=== PATIENT | male | born 1970 | race Hispanic/Latino ===

== ENCOUNTER 2017-06-20 18:04 | Inpatient (IN) | payer BC ==
[2017-06-20] MEDS ORDERED: Oxycodone/Acetaminophen 5/325 mg Tab PO STA (18:26)
[2017-06-20] MEDS ORDERED: Oxycodone/Acetaminophen 5/325 mg Tab ONE ×2 (19:10→19:14)
--- NOTE | 2017-06-20 19:24 | ED PDOC ---
HPI: General Adult Time Seen by Provider: 06/20/17 18:07 Chief Complaint (Nursing): Headache History Per: Patient Additional Complaint(s): Pt. states earlier this morning he was in the bathroom when he bent forward and attempted to lean on the sink with his arms but missed causing him to fall forward. States he struck the L side of his forehead and scalp onto the floor. Reports that he did not lose consciousness but has been having a headache since then. Further states that when he was 24 years old he required brain surgery to remove a glioblastoma. Denies LOC, N/V, neck pain, other injury. Past Medical History Reviewed: Historical Data, Nursing Documentation, Vital Signs Vital Signs: Last Vital Signs Temp 98 F 06/20/17 18:21 Pulse 84 06/20/17 19:51 Resp 20 06/20/17 18:21 BP 130/70 06/20/17 18:21 Pulse Ox 98 06/20/17 19:51 - Family History Family History: States: No Known Family Hx - Allergies Allergies/Adverse Reactions: Allergies Allergy/AdvReac Type Severity Reaction Status Date / Time No Known Allergies Allergy Verified 06/20/17 18:21 Review of Systems ROS Statement: Except As Marked, All Systems Reviewed And Found Negative Neurological: Positive for: Headache Physical Exam - Reviewed Nursing Documentation Reviewed: Yes Vital Signs Reviewed: Yes - Physical Exam Appears: Positive for: Well, Non-toxic, No Acute Distress Head Exam: Positive for: NORMOCEPHALIC. Negative for: ATRAUMATIC, NORMAL INSPECTION (old surgical wound on occipital scalp) Skin: Positive for: Normal Color, Warm. Negative for: Rash Eye Exam: Positive for: EOMI, Normal appearance, PERRL ENT: Positive for: Normal ENT Inspection Neck: Positive for: Normal, Painless ROM Cardiovascular/Chest: Positive for: Regular Rate, Rhythm, Chest Non Tender Respiratory: Positive for: CNT, Normal Breath Sounds Gastrointestinal/Abdominal: Positive for: Normal Exam, Bowel Sounds, Soft. Negative for: Tenderness Back: Positive for: Normal Inspection Extremity: Positive for: Normal ROM Neurologic/Psych: Positive for: Alert, Oriented. Negative for: Aphasia, Facial Droop - ECG ECG: Positive for: Interpreted By Me ECG Rhythm: Positive for: Sinus Rhythm. Negative for: ST/T Changes Rate: 84 O2 Sat by Pulse Oximetry: 98 - Progress ED Course And Treament: CT head w/o contrast ordered. Percocet 2 tabs PO [address]. [address] CT head w/o contrast: 1. There are old postoperative changes of right parieto- occipital craniotomy. 2. There is extensive encephalomalacia involving the right occipital and right parietal lobes, likely related to prior surgical resection. 3. No acute intracranial pathology. Pt. informed of results and instructed to f/u with PMD. Disposition - Clinical Impression Clinical Impression: Head injury - Patient ED Disposition Is Patient to be Admitted: No - Disposition Referrals: Glenda Foley [Outside] Disposition: Routine/Home Disposition Time: 19:51 Condition: STABLE Additional Instructions: Follow up with your neurologist for further evaluation. Instructions: Head Injury (ED) Forms: [facility] [employer] (Khmer) Print Language: HUNGARIAN
[2017-06-20] MEDS ORDERED: Sodium Chloride 0.9% 1,000 ML IV STA ×2 (21:15→21:21)
[2017-06-20 21:52] LABS: BASO % 0.4 % (0.0-2.0); EOS % 0.1 % (0.0-4.0); HEMATOCRIT 40.2 % (35.0-51.0); LYMPH % 13.1 % (20.0-40.0); MEAN CELL VOLUME 91.3 fl (80.0-94.0); MEAN CORPUSCULAR HEMOGLOBIN 31.3 pg (27.0-31.0); MEAN CORPUSCULAR HGB CONC 34.2 g/dL (33.0-37.0); MEAN PLATELET VOLUME 8.6 fl (7.2-11.7); MONO # 0.6 K/uL (0.0-0.8); NEUT # 6.2 K/uL (1.8-7.0); NEUT % 78.4 % (50.0-75.0); NRBC % 0.1 % (0.0-0.0); RED CELL DISTRIBUTION WIDTH 12.7 % (11.5-14.5); WHITE BLOOD COUNT 7.9 K/uL (4.8-10.8)
[2017-06-20 22:03] LABS: ALB/GLOB RATIO 1.6 (1.0-2.1); ALKALINE PHOSPHATASE 91 U/L (38-126); ALT/SGPT 32 U/L (21-72); AST/SGOT 26 U/L (17-59); BILIRUBIN,TOTAL 0.7 mg/dl (0.2-1.3); BLOOD UREA NITROGEN 12 mg/dl (9-20); CALCIUM 9.5 mg/dL (8.4-10.2); CARBON DIOXIDE 24 mmol/L (22-30); CHLORIDE 100 mmol/L (98-107); GFR AFRICAN-AMERICAN > 60; GLUCOSE,RANDOM 107 mg/dL (75-110); POTASSIUM 3.7 MMOL/L (3.6-5.0); SODIUM 139 mmol/l (132-148); TOTAL PROTEIN 6.7 G/DL (6.3-8.2)
--- NOTE | 2017-06-20 22:20 | ED PDOC ---
- Laboratory Results Result Diagrams: 06/20/17 21:48 06/20/17 21:48 - ECG O2 Sat by Pulse Oximetry: 98 <Meme Samson - Last Filed: 06/20/17 22:18> - Laboratory Results Result Diagrams: 06/20/17 21:48 06/20/17 21:48 <Jules Simons - Last Filed: 06/21/17 01:00> - Progress ED Course And Treament: Case endorsed to internal communications writer from Janna PEREZ pending re-eval Patient unable to get out of bed due to feeling severely "off-balanced". Sister at bedside, states patient has been with frequent falls due to feeling off-balanced but never to the extent of sending patient to hospital. Patient states he hit his head "pretty harD" this time. Patient vomited x1 in ED. Patient evaluated by ED attending Dr. Simons, who discussed case with patient's Neuro-oncologist Dr. Whitaker ([phone]), who does not have recommendations at this time. Patient will be admitted for intractable dizziness status-post head injury (Meme Samson) Disposition <Meme Samson - Last Filed: 06/20/17 22:18> - POA Present On Arrival: None - Disposition Disposition: Hospitalized as Observation Patient Disposition Time: 23:00 <Jules Simons - Last Filed: 06/21/17 01:00> - Clinical Impression Clinical Impression: Head injury - Disposition Condition: STABLE
[2017-06-21] MEDS ORDERED: Oxycodone/Acetaminophen 5/325 mg Tab PO PRN (06:43)
--- NOTE | 2017-06-21 08:39 | CT ---
PROCEDURE: CT HEAD WITHOUT CONTRAST. HISTORY: trauma COMPARISON: None available. TECHNIQUE: Axial computed tomography images were obtained through the head/brain without intravenous contrast. Radiation dose: Total exam DLP = 882.88 mGy-cm. This CT exam was performed using one or more of the following dose reduction techniques: Automated exposure control, adjustment of the mA and/or kV according to patient size, and/or use of iterative reconstruction technique. FINDINGS: HEMORRHAGE: Small area of intermediate to high attenuation in the high paramedian right frontal lobe (series 4, image 51 close) is noted. This may represent calcification or focal hemorrhage. BRAIN: There is extensive dentate calcification in both cerebellar hemispheres. There is extensive gyral calcification in the left posterior occipital parietal region. There are scattered cortical calcifications. There are pontine calcifications. These calcifications are most likely the result of prior infection, possibly childhood infection. The patient is status post resection of a portion of the right parietal lobe reportedly for neoplasm. There is no intracranial mass identified. There is extensive encephalomalacia in the surgical bed. There is no evidence of acute infarct. There is ischemic white matter change in the high frontal white matter bilaterally (series 4, image 43 through 49). VENTRICLES: Unremarkable. No hydrocephalus. CALVARIUM: Status post right occipito parietal craniotomy. No acute fracture. PARANASAL SINUSES: Unremarkable as visualized. No significant inflammatory changes. MASTOID AIR CELLS: Unremarkable as visualized. No inflammatory changes. OTHER FINDINGS: None. IMPRESSION: Focal area of intermediate to high attenuation in the paramedian high right frontal lobe. Possibly cortical calcification. Cannot rule out small area of focal hemorrhage. Repeat CT examination within 24 hours is advised. Extensive parenchymal calcification involving the cerebellar hemispheres, the linda, left occipital gyri and scattered cortical calcifications. Likely post infectious/inflammatory. Postsurgical encephalomalacia right occipital parietal likely related to prior surgery for reported neoplasm. Preliminary interpretation of this examination was reported by [facility] at time. There is discordance of this report with the preliminary interpretation. Question of hemorrhage versus calcification in the high right frontal lobe was not discussed in the preliminary report of this examination. The critical finding of possible focal hemorrhage this patient was discussed by telephone with the patient's nurse, Pamela, at 8:30 a.m. on 06/21/2017. The need for re- evaluation with computed tomography today was discussed at this time.
[2017-06-21] MEDS ORDERED: Pneumococcal 23-Valent Vaccine IM ONE (09:00)
[2017-06-21] MEDS ORDERED: Influenza Vaccine 18yr & older 0.5 ML/45 MCG SYR IM ONE (09:00)
[2017-06-21 09:39] LABS: ALB/GLOB RATIO 1.5 (1.0-2.1); ALKALINE PHOSPHATASE 83 U/L (38-126); ALT/SGPT 32 U/L (21-72); AST/SGOT 25 U/L (17-59); BILIRUBIN,TOTAL 0.9 mg/dl (0.2-1.3); BLOOD UREA NITROGEN 11 mg/dl (9-20); CALCIUM 9.3 mg/dL (8.4-10.2); CARBON DIOXIDE 24 mmol/L (22-30); CHLORIDE 98 mmol/L (98-107); CHOLESTEROL 184 mg/dL (0-199); GFR AFRICAN-AMERICAN > 60; GLUCOSE,RANDOM 106 mg/dL (75-110); SODIUM 136 mmol/l (132-148); TOTAL PROTEIN 6.7 G/DL (6.3-8.2)
[2017-06-21 09:44] LABS: HEMATOCRIT 38.2 % (35.0-51.0); MEAN CELL VOLUME 90.7 fl (80.0-94.0); MEAN CORPUSCULAR HEMOGLOBIN 31.4 pg (27.0-31.0); MEAN CORPUSCULAR HGB CONC 34.6 g/dL (33.0-37.0); RED CELL DISTRIBUTION WIDTH 12.5 % (11.5-14.5); WHITE BLOOD COUNT 6.6 K/uL (4.8-10.8)
[2017-06-21 09:49] LABS: PARTIAL THROMBOPLASTIN TIME 27.7 Seconds (25.6-37.1)
[2017-06-21 09:57] LABS: T4 5.12 ug/dl (5.5-11.0)
[2017-06-21 10:10] LABS: THYROID STIMULATING HORMONE 0.44 mIU/ML (0.46-4.68)
--- NOTE | 2017-06-21 10:37 | CARD ---
APPROVED REPORT EKG Measurement Heart [id number] [place] 146P [id number] <Conclusion> Normal sinus rhythm Left posterior fascicular block Nonspecific ST and T wave abnormality Abnormal ECG Suspect arm lead reversal-recommend repeat
--- NOTE | 2017-06-21 11:59 | RAD ---
HISTORY: Admission. Technique: Single view portable semi erect @ 22:35. COMPARISON: No prior. FINDINGS: LUNGS: No active pulmonary disease. PLEURA: No significant pleural effusion identified, no pneumothorax apparent. CARDIOVASCULAR: Cardiomegaly. No evidence of acute, significant cardiovascular disease. OSSEOUS STRUCTURES: No significant abnormalities. VISUALIZED UPPER ABDOMEN: Normal. OTHER FINDINGS: None. IMPRESSION: No active disease. No preliminary report provided by emergency department personnel.
--- NOTE | 2017-06-21 13:25 | CP.PCM.HP ---
History of Present Illness - History of Present Illness History of Present Illness: CC: Fall and trauma. 46 y/o M, brought by EMS to [facility], [place] after he sustained a fall and head trauma while at home on DOA, episode was associated to unstable gait . Worsening symptoms: Headache, throbbing pain of moderate intensity 6:10, after fall an episode of vomiting large amount of clear fluid, Hx of Gioblastoma. Aggravated factor: Loss of balance on occasions. As per Pt; He was in the bathroom and when he tried to lean on the sink with his hands but suddenly he losses the balance and fell forward hitting his L side of head against the wall, no LOC. Pt denied: Fever, chills, nausea/diarrhea, abdominal pain, CP, palpitations, SOB , cough, seizure, lightheadedness, sick contact, recent travel. PMHx: R Occipital Brain Mass Glioblastoma s/p resection and radiation 20 yrs ago , there after developed Seizure Tx with Tegretol. Hx Falls 2nd to L side difficulty with coordinations, Hx of Hemianopsia for 22 yrs. P Present on Admission - Present on Admission Any Indicators Present on Admission: No Review of Systems - Constitutional Constitutional: Frequent Falls, Headache - EENT Ears: Other (negative) Nose/Mouth/Throat: Other (negative) - Cardiovascular Cardiovascular: Other (negative) - Respiratory Respiratory: Other (negative) - Gastrointestinal Gastrointestinal: Vomiting - Genitourinary Genitourinary: Other (negative) - Integumentary Integumentary: Other (negative) - Neurological Neurological: Abnormal Gait, Dizziness, Focal Weakness, Vertigo - Psychiatric Psychiatric: Depression - Endocrine Endocrine: Other (negative) - Hematologic/Lymphatic Hematologic: Other (negative) Past Patient History - Past Medical History & Family History Past Medical History?: Yes Pertinent Family History: Unknown - Past Social History Smoking Status: Never Smoked Alcohol: None Drugs: Denies Home Situation {Lives}: Alone - CARDIAC Hx Cardiac Disorders: No - PULMONARY Hx Respiratory Disorders: No - NEUROLOGICAL Hx Neurological Disorder: Yes Hx Seizures: Yes Other/Comment: malignant brain tumor that was resected 20 years ago - RENAL Hx Chronic Kidney Disease: No - ENDOCRINE/METABOLIC Hx Endocrine Disorders: No - HEMATOLOGICAL/ONCOLOGICAL Hx Blood Disorders: No - INTEGUMENTARY Hx Dermatological Problems: No - MUSCULOSKELETAL/RHEUMATOLOGICAL Hx Musculoskeletal Disorders: Yes Hx Falls: Yes - GASTROINTESTINAL Hx Gastrointestinal Disorders: No - GENITOURINARY/GYNECOLOGICAL Hx Genitourinary Disorders: No - PSYCHIATRIC Hx Psychophysiologic Disorder: Yes Hx Depression: Yes Hx Substance Use: No - SURGICAL HISTORY Hx Surgeries: Yes Other/Comment: Malignant Robbie Tumor resected 20 years ago. - ANESTHESIA Hx Anesthesia: Yes Hx Anesthesia Reactions: No Meds Home Medications: Home Medication List Medication Instructions Recorded Confirmed Type Aspirin [Ecotrin] 81 mg PO DAILY tabec 06/27/17 Rx Dexamethasone [Decadron Inj] 4 mg IV Q12 #10 vial 06/27/17 Rx Meclizine [Meclizine*] 25 mg PO Q8 tab 06/27/17 Rx carBAMazepine [TEGretol-XR] 300 [address]12 [address] 06/27/17 Rx Allergies/Adverse Reactions: Allergies Allergy/AdvReac Type Severity Reaction Status Date / Time No Known Allergies Allergy Verified 06/27/17 16:36 Physical Exam - Constitutional Appears: Chronically Ill - Head Exam Additional comments: R Craneotomy - Eye Exam Eye Exam: PERRL - ENT Exam ENT Exam: Normal Exam - Neck Exam Neck exam: Positive for: Normal Inspection - Respiratory Exam Respiratory Exam: Clear to Auscultation Bilateral - Cardiovascular Exam Cardiovascular Exam: REGULAR RHYTHM - GI/Abdominal Exam GI & Abdominal Exam: Normal Bowel Sounds, Soft - Extremities Exam Extremities exam: Positive for: normal inspection - Back Exam Back exam: NORMAL INSPECTION - Neurological Exam Neurological exam: Abnormal Gait, Oriented x3 Additional comments: L Hemianopsia , LUE , LLE Ataxia , L decreased hand supervisor facepiece line , moves lower extremities but is unable to stand - Psychiatric Exam Psychiatric exam: Depressed - Skin Skin Exam: Normal Color, Warm Results - Vital Signs Recent Vital Signs: Last Vital Signs Temp 99.6 F 06/21/17 08:40 Pulse 74 06/21/17 08:40 Resp 20 06/21/17 08:40 BP 134/85 06/21/17 08:40 Pulse Ox 97 06/21/17 08:40 reviewed Parris - Labs Result Diagrams: 06/24/17 05:40 06/24/17 05:40 Labs: Laboratory Results - last 24 hr 06/20/17 06/20/17 06/20/17 18:22 21:48 21:48 WBC 7.9 RBC 4.40 Hgb 13.8 Hct 40.2 MCV 91.3 MCH 31.3 H MCHC 34.2 RDW 12.7 Plt Count 165 MPV 8.6 Neut % (Auto) 78.4 H Lymph % (Auto) 13.1 L [place] % (Auto) 8.0 Eos % (Auto) 0.1 Baso % (Auto) 0.4 Neut # 6.2 Lymph # 1.0 [place] # 0.6 Eos # 0.0 Baso # 0.0 PT INR APTT Sodium 139 Potassium 3.7 Chloride 100 Carbon Dioxide 24 Anion Gap 19 BUN 12 Creatinine 0.8 Est GFR ( Amer) > 60 Est GFR (Non-Af Amer) > 60 POC Glucose (mg/dL) 104 Random Glucose 107 Calcium 9.5 Total Bilirubin 0.7 AST 26 ALT 32 Alkaline Phosphatase 91 Troponin I < 0.0120 Total Protein 6.7 Albumin 4.1 Globulin 2.6 Albumin/Globulin Ratio 1.6 Triglycerides Cholesterol LDL Cholesterol Direct HDL Cholesterol Thyroxine (T4) TSH 3rd Generation Carbamazepine 06/20/17 06/21/17 06/21/17 21:48 08:30 08:30 WBC 6.6 RBC 4.21 L Hgb 13.2 Hct 38.2 MCV 90.7 MCH 31.4 H MCHC 34.6 RDW 12.5 Plt Count 154 MPV Neut % (Auto) Lymph % (Auto) [place] % (Auto) Eos % (Auto) Baso % (Auto) Neut # Lymph # [place] # Eos # Baso # PT 12.1 INR 1.2 APTT 27.7 Sodium Potassium Chloride Carbon Dioxide Anion Gap BUN Creatinine Est GFR ( Amer) Est GFR (Non-Af Amer) POC Glucose (mg/dL) Random Glucose Calcium Total Bilirubin AST ALT Alkaline Phosphatase Troponin I Total Protein Albumin Globulin Albumin/Globulin Ratio Triglycerides Cholesterol LDL Cholesterol Direct HDL Cholesterol Thyroxine (T4) TSH 3rd Generation Carbamazepine < 3.0 L 06/21/17 08:30 WBC RBC Hgb Hct MCV MCH MCHC RDW Plt Count MPV Neut % (Auto) Lymph % (Auto) [place] % (Auto) Eos % (Auto) Baso % (Auto) Neut # Lymph # [place] # Eos # Baso # PT INR APTT Sodium 136 Potassium 4.0 Chloride 98 Carbon Dioxide 24 Anion Gap 18 BUN 11 Creatinine 0.8 Est GFR ( Amer) > 60 Est GFR (Non-Af Amer) > 60 POC Glucose (mg/dL) Random Glucose 106 Calcium 9.3 Total Bilirubin 0.9 AST 25 ALT 32 Alkaline Phosphatase 83 Troponin I Total Protein 6.7 Albumin 4.1 Globulin 2.7 Albumin/Globulin Ratio 1.5 Triglycerides 66 Cholesterol 184 LDL Cholesterol Direct 76 HDL Cholesterol 89 H Thyroxine (T4) 5.12 L TSH 3rd Generation 0.44 L Carbamazepine reviewed J.P. - EKG Data EKG comments: reviewed J.P. - Imaging and Cardiology CT scan - head Status: Report reviewed by me (x 2, J.P.) Chest x-ray Status: Report reviewed by me (J.P.) Assessment & Plan (1) Gait instability Status: Acute Priority: High (2) Head injury Status: Acute Priority: High Comment: 2nd to fall (3) Headache Status: Resolved Priority: High (4) Hx of seizure disorder Status: Chronic (5) Hx of fall Status: Chronic (6) History of brain tumor Status: Resolved - Assessment and Plan (Free Text) Plan: F/U Brain MRI, MRI Orbit/Face/Neck/IAC, continue Decadron, Tegretol , and rest of Tx. PT eval. Neurology consult appreciated. - Date & Time Date: 06/21/17 Time: 13:30
--- NOTE | 2017-06-21 14:31 | CP.PCM.CON ---
History of Present Illness - History of Present Illness History of Present Illness: Mr. Huizar is a 46-year-old man with a past medical history of a right occipital brain mass s/p resection and radiation, who developed seizures in the past, and is on Tegretol. He states that his neuro-oncologist recently decreased the Tegretol dose from BID to once daily. He has intermittent weakness and left side difficulty with coordination. For the last 22 years, he has had left side hemianopsia. According to the patient, he was getting ready for work, getting out of the shower, when he noticed his coordination and balance was off. His head continued to move forward as he was bending down and he subsequently hit his head on the floor. His head was struck near the left frontal-temporal region. He continues to complain of headache and balance difficulty with left side coordination difficulty. Review of Systems - Review of Systems All systems: reviewed and no additional remarkable complaints except Past Patient History - Past Medical History & Family History Past Medical History?: Yes - Past Social History Smoking Status: Never Smoked - CARDIAC Hx Cardiac Disorders: No - NEUROLOGICAL Other/Comment: malignant brain tumor that was resected 20 years ago - MUSCULOSKELETAL/RHEUMATOLOGICAL Hx Falls: Yes - PSYCHIATRIC Hx Substance Use: No - ANESTHESIA Hx Anesthesia: Yes Meds Allergies/Adverse Reactions: Allergies Allergy/AdvReac Type Severity Reaction Status Date / Time No Known Allergies Allergy Verified 06/20/17 18:21 - Medications Medications: Current Medications Carbamazepine (Tegretol-Xr) 200 mg PO Q12 [facility] Escitalopram Oxalate (Lexapro) 10 mg PO DAILY [facility] Last Admin: 06/21/17 09:42 Dose: 10 mg Meclizine HCl (Antivert) 25 mg PO Q8 [facility] Last Admin: 06/21/17 09:44 Dose: 25 mg Oxycodone/Acetaminophen (Percocet 5/325 Mg Tab) 2 tab PO Q4 PRN PRN Reason: Pain, severe (8-10) Stop: 06/24/17 06:44 Physical Exam - Constitutional Appears: Unkempt - Head Exam Head Exam: ATRAUMATIC, NORMAL INSPECTION, NORMOCEPHALIC - Eye Exam Eye Exam: EOMI, Normal appearance, PERRL - ENT Exam ENT Exam: Mucous Membranes Moist, Normal Exam - Neck Exam Neck exam: Positive for: Normal Inspection - Respiratory Exam Respiratory Exam: Clear to Auscultation Bilateral, NORMAL BREATHING PATTERN - Cardiovascular Exam Cardiovascular Exam: REGULAR RHYTHM, +S1, +S2 - GI/Abdominal Exam GI & Abdominal Exam: Normal Bowel Sounds, Soft. absent: Tenderness - Rectal Exam Rectal Exam: Deferred - Extremities Exam Extremities exam: Positive for: normal inspection - Neurological Exam Neurological exam: Abnormal Gait, CN II-XII Intact, Oriented x3, Reflexes Normal Additional comments: Left upper and lower extremity ataxia present. Left side hemianopsia noted. Neglect of the left side noted. Right side is normal. Speech is normal. No dysarthria noted. Strength is diminished on the left with pronator drift. Reflexes are brisk on the left. Gait was not assessed due to patient being unable to site up without assistance. Romberg was not tested. - Psychiatric Exam Psychiatric exam: Agitated, Anxious, Depressed - Skin Skin Exam: Dry, Intact, Normal Color, Warm Results - Vital Signs Recent Vital Signs: Last Vital Signs Temp 99.6 F 06/21/17 08:40 Pulse 74 06/21/17 08:40 Resp 20 06/21/17 08:40 BP 134/85 06/21/17 08:40 Pulse Ox 97 06/21/17 08:40 - Labs Result Diagrams: 06/21/17 08:30 06/21/17 08:30 Labs: Laboratory Results - last 24 hr 06/20/17 06/20/17 06/20/17 18:22 21:48 21:48 WBC 7.9 RBC 4.40 Hgb 13.8 Hct 40.2 MCV 91.3 MCH 31.3 H MCHC 34.2 RDW 12.7 Plt Count 165 MPV 8.6 Neut % (Auto) 78.4 H Lymph % (Auto) 13.1 L [place] % (Auto) 8.0 Eos % (Auto) 0.1 Baso % (Auto) 0.4 Neut # 6.2 Lymph # 1.0 [place] # 0.6 Eos # 0.0 Baso # 0.0 PT INR APTT Sodium 139 Potassium 3.7 Chloride 100 Carbon Dioxide 24 Anion Gap 19 BUN 12 Creatinine 0.8 Est GFR ( Amer) > 60 Est GFR (Non-Af Amer) > 60 POC Glucose (mg/dL) 104 Random Glucose 107 Calcium 9.5 Total Bilirubin 0.7 AST 26 ALT 32 Alkaline Phosphatase 91 Troponin I < 0.0120 Total Protein 6.7 Albumin 4.1 Globulin 2.6 Albumin/Globulin Ratio 1.6 Triglycerides Cholesterol LDL Cholesterol Direct HDL Cholesterol Thyroxine (T4) TSH 3rd Generation Carbamazepine 06/20/17 06/21/17 06/21/17 21:48 08:30 08:30 WBC 6.6 RBC 4.21 L Hgb 13.2 Hct 38.2 MCV 90.7 MCH 31.4 H MCHC 34.6 RDW 12.5 Plt Count 154 MPV Neut % (Auto) Lymph % (Auto) [place] % (Auto) Eos % (Auto) Baso % (Auto) Neut # Lymph # [place] # Eos # Baso # PT 12.1 INR 1.2 APTT 27.7 Sodium Potassium Chloride Carbon Dioxide Anion Gap BUN Creatinine Est GFR ( Amer) Est GFR (Non-Af Amer) POC Glucose (mg/dL) Random Glucose Calcium Total Bilirubin AST ALT Alkaline Phosphatase Troponin I Total Protein Albumin Globulin Albumin/Globulin Ratio Triglycerides Cholesterol LDL Cholesterol Direct HDL Cholesterol Thyroxine (T4) TSH 3rd Generation Carbamazepine < 3.0 L 06/21/17 08:30 WBC RBC Hgb Hct MCV MCH MCHC RDW Plt Count MPV Neut % (Auto) Lymph % (Auto) [place] % (Auto) Eos % (Auto) Baso % (Auto) Neut # Lymph # [place] # Eos # Baso # PT INR APTT Sodium 136 Potassium 4.0 Chloride 98 Carbon Dioxide 24 Anion Gap 18 BUN 11 Creatinine 0.8 Est GFR ( Amer) > 60 Est GFR (Non-Af Amer) > 60 POC Glucose (mg/dL) Random Glucose 106 Calcium 9.3 Total Bilirubin 0.9 AST 25 ALT 32 Alkaline Phosphatase 83 Troponin I Total Protein 6.7 Albumin 4.1 Globulin 2.7 Albumin/Globulin Ratio 1.5 Triglycerides 66 Cholesterol 184 LDL Cholesterol Direct 76 HDL Cholesterol 89 H Thyroxine (T4) 5.12 L TSH 3rd Generation 0.44 L Carbamazepine - Imaging and Cardiology CT scan - head Status: Image reviewed by me, Report reviewed by me (CT shows previous craniotomy with resection of right occipital mass. Calcific changes in cerebellum and left occipital lobe noted. ) Assessment & Plan (1) Gait instability Assessment and Plan: The patient was able to ambulate with a cane up to two days ago. Now, he is unable to sit up without assistance. This signifies an acute change and should be evaluated for underlying pathology. I recommend obtaining an MRI of the brain with and without contrast for further evaluation. I would like to increase the Tegretol dose to 200 mg BID to avoid potential seizure activity. Status: Acute Priority: High (2) Headache Assessment and Plan: Will treat the headache with magnesium sulfate 2 grams IV and decadron 10 mg IV once. Avoid opiate medications. Status: Acute
--- NOTE | 2017-06-21 14:32 | CT ---
PROCEDURE: CT HEAD WITHOUT CONTRAST. HISTORY: R/o intracranial bleed COMPARISON: 06/20/2017 TECHNIQUE: Axial computed tomography images were obtained through the head/brain without intravenous contrast. Radiation dose: Total exam DLP = 874.39 mGy-cm. This CT exam was performed using one or more of the following dose reduction techniques: Automated exposure control, adjustment of the mA and/or kV according to patient size, and/or use of iterative reconstruction technique. FINDINGS: HEMORRHAGE: The area of focal high attenuation in the high parasagittal right frontal lobe is again identified without any interval change in morphology. This is unlikely to represent hemorrhage and most likely represents focal calcification. BRAIN: Extensive calcification in both cerebellar hemispheres. Gyral calcification in the left posterior occipital parietal region. Scattered cortical calcifications. Pontine calcifications. Most likely these calcifications are the result of old infection. Status post partial surgical resection of right parietal lobe for neoplasm. No intracranial mass. No evidence of acute infarct. High bilateral frontal white matter ischemic change. VENTRICLES: Unremarkable. No hydrocephalus. CALVARIUM: Right occipitoparietal craniotomy. PARANASAL SINUSES: Unremarkable as visualized. No significant inflammatory changes. MASTOID AIR CELLS: Unremarkable as visualized. No inflammatory changes. OTHER FINDINGS: None. IMPRESSION: No evidence of acute intracranial hemorrhage.
[2017-06-21] MEDS ORDERED: Dexamethasone 10 MG in Dextrose 5% In Water 50 ML IV ONE (15:00)
[2017-06-21] MEDS ORDERED: Magnesium Sulfate 2 gm/50 ml 2 GM/50 ML BAG IVPB ONE (15:00)
[2017-06-21 22:27] LABS: RBC URINE 3 /hpf (0-3); URINE BACTERIA RARE (<OCC); URINE BILIRUBIN NEGATIVE (NEGATIVE); URINE BLOOD NEGATIVE (NEGATIVE); URINE COLOR AMBER (YELLOW); URINE GLUCOSE (UA) NEG (Normal); URINE KETONE NEGATIVE (NEGATIVE); URINE LEUKOCYTE ESTERASE NEG Leu/uL (Negative); URINE PROTEIN 30 mg/dL (NEGATIVE); WBC URINE 1 /hpf (0-5)
--- NOTE | 2017-06-22 11:20 | CP.PCM.PN ---
Subjective - Date & Time of Evaluation Date of Evaluation: 06/22/17 Time of Evaluation: 11:16 - Subjective Subjective: Mr. Avila was seen and examined at the bedside. He is agitated, restless, and claims of left arm weakness. He also claims of pressure like headache in his temporal area with scale 4/10. no radiating. He denies any seizures or lightheadedness. He had anxiety attack during an MRI procedure yesterday.There was no untoward events overnight. Objective - Vital Signs/Intake and Output Vital Signs (last 24 hours): Temp Pulse Resp BP Pulse Ox 97.9 F 57 L 20 120/83 98 06/22/17 07:42 06/22/17 07:42 06/22/17 07:42 06/22/17 07:42 06/22/17 07:42 - Medications Medications: Current Medications Carbamazepine (Tegretol-Xr) 200 mg PO Q12 [facility] Last Admin: 06/22/17 09:07 Dose: 200 mg Escitalopram Oxalate (Lexapro) 10 mg PO DAILY [facility] Last Admin: 06/22/17 09:06 Dose: 10 mg Meclizine HCl (Antivert) 25 mg PO Q8 [facility] Last Admin: 06/22/17 09:06 Dose: 25 mg Oxycodone/Acetaminophen (Percocet 5/325 Mg Tab) 2 tab PO Q4 PRN PRN Reason: Pain, severe (8-10) Stop: 06/24/17 06:44 Last Admin: 06/21/17 17:27 Dose: 2 tab - Labs Labs: 06/21/17 08:30 06/21/17 08:30 PT 12.1 Seconds (9.8-13.1) 06/21/17 08:30 INR 1.2 (0.9-1.2) 06/21/17 08:30 APTT 27.7 Seconds (25.6-37.1) 06/21/17 08:30 - Constitutional Appears: Agitated - Neurological Exam Neurological Exam: Alert, Awake Neuro motor strength exam: Left Upper Extremity: 2/1, Right Upper Extremity: 5, Left Lower Extremity: 3, Right Lower Extremity: 5 Additional comments: He is able to follow simple commands but remains with left arm drift and left extremity weakness. Assessment and Plan (1) Gait instability Assessment & Plan: Case discussed with Dr. Jerez, will follow up MRI of the brain. If the patient has episode of panic attack, we recommend Ativan as needed. Unit [employer] made aware. Status: Acute (2) Headache Assessment & Plan: Case discussed with Dr. Jerez, continue current medical therapy will recommend Magnesium Sulfate 2 gm IVPB for 1 dose. Status: Acute
[2017-06-22] MEDS ORDERED: Magnesium Sulfate 2 gm/50 ml 2 GM/50 ML BAG IVPB ONE (11:24)
[2017-06-22] MEDS ORDERED: Gadodiamide 287 MG/ML VIAL (15ML) IV ONE (15:59)
--- NOTE | 2017-06-22 16:17 | CP.PCM.PN ---
Subjective - Subjective Subjective: complains od increase lack of cordination LUE , Patient with LLE weakness unable to transfer from bed to chair , headache , anxiety Objective - Vital Signs/Intake and Output Vital Signs (last 24 hours): Temp Pulse Resp BP Pulse Ox 97.9 F 57 L 20 120/83 98 06/22/17 07:42 06/22/17 07:42 06/22/17 07:42 06/22/17 07:42 06/22/17 07:42 - Medications Medications: Current Medications Carbamazepine (Tegretol-Xr) 200 mg PO Q12 [facility] Last Admin: 06/22/17 09:07 Dose: 200 mg Escitalopram Oxalate (Lexapro) 10 mg PO DAILY [facility] Last Admin: 06/22/17 09:06 Dose: 10 mg Meclizine HCl (Antivert) 25 mg PO Q8 [facility] Last Admin: 06/22/17 09:06 Dose: 25 mg Oxycodone/Acetaminophen (Percocet 5/325 Mg Tab) 2 tab PO Q4 PRN PRN Reason: Pain, severe (8-10) Stop: 06/24/17 06:44 Last Admin: 06/21/17 17:27 Dose: 2 tab - Labs Labs: 06/21/17 08:30 06/21/17 08:30 PT 12.1 Seconds (9.8-13.1) 06/21/17 08:30 INR 1.2 (0.9-1.2) 06/21/17 08:30 APTT 27.7 Seconds (25.6-37.1) 06/21/17 08:30 - Constitutional Appears: Chronically Ill - Head Exam Additional comments: R Craneotomy - Eye Exam Eye Exam: PERRL - ENT Exam ENT Exam: Normal Exam - Neck Exam Neck Exam: Normal Inspection - Respiratory Exam Respiratory Exam: Clear to Ausculation Bilateral - Cardiovascular Exam Cardiovascular Exam: REGULAR RHYTHM - GI/Abdominal Exam GI & Abdominal Exam: Soft, Normal Bowel Sounds - Extremities Exam Extremities Exam: Normal Inspection - Back Exam Back Exam: NORMAL INSPECTION - Neurological Exam Neurological Exam: Alert Additional comments: A O x3 , increased lack of cordination LUE, weakness LUE , unable to do L finger nose , able to move L/E , weakness LLE - Psychiatric Exam Psychiatric exam: Anxious - Skin Skin Exam: Warm Assessment and Plan (1) Gait instability Status: Acute (2) Head injury Status: Acute (3) Headache Status: Acute (4) History of brain tumor Status: Acute (5) Hx of fall Status: Chronic (6) Hx of seizure disorder Status: Chronic - Assessment and Plan (Free Text) Plan: Patient had repeated CT Head yesterday , no hemorrhage , MRI of Brain no new findings, to have Neck Head CTA today , continue rest of treatment.
--- NOTE | 2017-06-22 17:07 | MRI ---
PROCEDURE: MRI BRAIN WITH AND WITHOUT CONTRAST HISTORY: dizziness, frequent falls, h/o glioblastoma COMPARISON: Noncontrast head CT from 06/20/2017 TECHNIQUE: Multiplanar, multisequence MR images of the brain were obtained with and without intravenous contrast enhancement. 20 cc Omniscan was injected intravenously. FINDINGS: HEMORRHAGE: None DWI: No evidence of an acute or early subacute infarction. BRAIN PARENCHYMA: There is cystic encephalomalacia and gliosis with septation in the right posterior parietal and occipital lobes septation tube parieto-occipital craniectomy and duraplasty related to prior tumor resection. There is mild gyral enhancement in the right anterior occipital and parietal lobes most compatible with post treatment reactive enhancement. Confluent hyperintensity in the left periatrial white matter could also be related to posttreatment changes or gliosis. There is no mass effect or abnormal extra-axial fluid collection. The midline sagittal structures are normal. There is gyriform increased magnetic susceptibility in the left parieto-occipital lobe corresponding to the calcifications on CT examination which may be related to radiation therapy in this patient with glioblastoma. VENTRICLES: There is mild global parenchymal volume loss and proportionate enlargement of the ventricles and cortical sulci. CRANIUM: There is normal bone marrow signal pattern. ORBITS: Grossly unremarkable. PARANASAL SINUSES/MASTOIDS: Predominantly clear. VASCULAR SYSTEM: There are normal signal voids in the larger intracranial arteries. OTHER FINDINGS: None . IMPRESSION: 1. No acute intracranial abnormality. 2. Status post right tumor resection, cystic encephalomalacia and gliosis in the right posterior parietal and occipital lobes with associated mild surrounding gyral enhancement within the spectrum of posttreatment changes. 3. Mild global parenchymal volume loss, advanced for the patient's age.
--- NOTE | 2017-06-22 17:12 | MRI ---
PROCEDURE: MRI OF THE BRAIN AND INTERNAL AUDITORY CANALS WITH AND WITHOUT CONTRAST. HISTORY: dizziness, frequent falls; h/o glioblastoma COMPARISON: None. TECHNIQUE: Multiplanar, multisequence MR images of the brain and posterior fossa were obtained with and without contrast. High-resolution posterior fossa and images through the cerebellopontine angle and internal auditory canals included: Axial 3-D fiesta, axial T1 pre-and postcontrast enhanced and coronal T1 pre-and postcontrast enhanced. 20 cc Omniscan was injected intravenously. FINDINGS: IAC/CP ANGLES: INTERNAL AUDITORY CANALS: Unremarkable. CEREBELLOPONTINE ANGLES: Unremarkable. INNER EAR STRUCTURES: Unremarkable. Normally formed cochlea and semicircular canals. No signal abnormality or abnormal enhancement in the membranous labyrinth of the cochlea, vestibule or the semicircular canals. BRAINSTEM: Unremarkable. MASTOIDS: Predominantly clear. OTHER: No other notable findings. PARANASAL SINUSES: Clear IMPRESSION: No mass or abnormal enhancement in the IAC's or CP angle cisterns.
[2017-06-23] MEDS ORDERED: Sodium Chloride 0.9% 50 ML IV ONE (09:32)
[2017-06-23] MEDS ORDERED: Iodixanol 320 mg/ml 50 ml Sol IV ONE (09:32)
--- NOTE | 2017-06-23 10:51 | CT ---
PROCEDURE: CT Angiography of the Brain. HISTORY: tia COMPARISON: None available. TECHNIQUE: CT angiography of the intracranial and cervical arteries was performed. Coronal and sagittal maximum intensity projection reformated images were generated. Total radiation dose DLP: 728.[address] exam was performed using one or more of the following dose reduction techniques: Automated exposure control, adjustment of the mA and/or kV according to patient size, and/or use of iterative reconstruction technique. FINDINGS: INTERNAL CEREBRAL ARTERIES: Unremarkable. The skull base, petrous, cavernous and supraclinoid segments are bilaterally widely patient. ANTERIOR CEREBRAL ARTERIES: Unremarkable. A1 and A2 segments are widely patent. Smaller distal branches unremarkable, as visualized. MIDDLE CEREBRAL ARTERIES: Unremarkable. M1 and M2 segments are widely patent. Perisylvian branches grossly symmetric. POSTERIOR CIRCULATION: Basilar Artery: Unremarkable. Distal Vertebral Arteries: Unremarkable. Posterior Cerebral Arteries: Unremarkable. Posterior Inferior Cerebellar Arteries: Unremarkable. ANEURYSM/ VASCULAR MALFORMATIONS: None. OTHER FINDINGS: CERVICAL CTA RESULTS: Common carotid arteries: The bilateral common carotid appear widely patent from their origins to their bifurcations with no significant stenosis appreciated. No evidence to suggest common carotid artery dissection. Internal carotid arteries: No significant stenosis is appreciated throughout the cervical internal carotid artery segments bilaterally and there is no evidence of dissection either. Vertebral arteries: The bilateral vertebral artery normal in caliber from their origins to their union with the basilar artery. Vertebrobasilar system appears left dominant. No significant stenosis or definite pattern of dissection. Incidentally, the bilateral subclavian arteries are widely patent as well as the brachiocephalic artery. Instill note is made of a 2.5 cm heterogeneously enhancing mass at the mid to inferior poles right lobe thyroid gland. IMPRESSION: Unremarkable CT Angiography of the Brain and Neck. Incidental note note is made of a 2.5 cm mass in the right thyroid lobe for which follow-up nuclear thyroid scan or thyroid ultrasound can be performed for additional characterization.
--- NOTE | 2017-06-23 12:00 | CP.PCM.PN ---
Subjective - Date & Time of Evaluation Date of Evaluation: 06/23/17 Time of Evaluation: 11:55 - Subjective Subjective: Mr. Avila was seen and examined at the bedside. He is able to minimally control his left arm drift during finger to nose test.He is not agitated today. He claims of his headache improving from 6/10 to 2/10, pressure like non- radiating, no photophobia or phonophobia. There was no untoward events overnight. He is not in any acute distress. Objective - Vital Signs/Intake and Output Vital Signs (last 24 hours): Temp Pulse Resp BP Pulse Ox 98.7 F 62 20 131/83 98 06/23/17 08:31 06/23/17 08:31 06/23/17 08:31 06/23/17 08:31 06/23/17 08:31 - Medications Medications: Current Medications Aspirin (Ecotrin) 81 mg PO DAILY [facility] Last Admin: 06/23/17 08:54 Dose: 81 mg Carbamazepine (Tegretol-Xr) 300 mg PO Q12 [facility] Last Admin: 06/23/17 08:55 Dose: 300 mg Dexamethasone (Decadron) 4 mg PO Q6 [facility] Escitalopram Oxalate (Lexapro) 10 mg PO DAILY [facility] Last Admin: 06/23/17 08:54 Dose: 10 mg Meclizine HCl (Antivert) 25 mg PO Q8 [facility] Last Admin: 06/23/17 08:54 Dose: 25 mg Oxycodone/Acetaminophen (Percocet 5/325 Mg Tab) 2 tab PO Q4 PRN PRN Reason: Pain, severe (8-10) Stop: 06/24/17 06:44 Last Admin: 06/21/17 17:27 Dose: 2 tab - Labs Labs: 06/21/17 08:30 06/21/17 08:30 PT 12.1 Seconds (9.8-13.1) 06/21/17 08:30 INR 1.2 (0.9-1.2) 06/21/17 08:30 APTT 27.7 Seconds (25.6-37.1) 06/21/17 08:30 - Constitutional Appears: Unkempt - Neurological Exam Neurological Exam: Alert, Awake, Oriented x3 Neuro motor strength exam: Left Upper Extremity: 3, Right Upper Extremity: 5, Left Lower Extremity: 4, Right Lower Extremity: 5 Additional comments: He is able to follow simple commands such as finger to nose and knee to bryson test assessment. There was no nystagmus noted Assessment and Plan (1) Gait instability Assessment & Plan: Case discussed with Dr. Jerez, continue current medical, physical, occupational therapies and to start with dexamethasone 4 mg IV every 6 hours. Tegretol from 200 mg. to 300 mg.was increase yesterday and aspirin 81 mg PO daily was also added yesterday Status: Acute (2) Headache Status: Acute
--- NOTE | 2017-06-23 14:58 | PCM.EEG ---
Electroencephalogram Report - Electroencephalogram Report Procedure Date: 06/23/17 Interpretation: History: 46-year-old man with seizure disorder s/p resection and radiation of right occipital mass about 22 years ago, presented with worsening left side weakness and ataxia. Medications: Carbamazepine 200 mg BID. Technical: This is a digitally recorded electroencephalogram. The international 10-20 electrode placement system is used for scalp electrode placement. Sixteen channels of scalp EEG are recorded One channel was used for EOG. The data are stored digitally and reviewed in reformatted montages for optimal display. Background: 9 to 10 hertz alpha activity was seen. Maximal over the posterior head region. Focal abnormality: Intermittent focal slowing was seen. Periodic lateralized discharge was seen. Mainly over the Right temporal area. This is seen over the Right hemisphere. Impression: This EEG is abnormal. Epileptiform discharge was seen. This can represent a potential seizure focus. Some focal slowing was seen, suggestive of a focal abnormality. Clinical correlation is needed.
--- NOTE | 2017-06-23 15:05 | CP.PCM.PN ---
Subjective - Date & Time of Evaluation Date of Evaluation: 06/23/17 Time of Evaluation: 10:30 - Subjective Subjective: increased cordination of LUE compared to yesterday, able to extend LUE , appears more calm Objective - Vital Signs/Intake and Output Vital Signs (last 24 hours): Temp Pulse Resp BP Pulse Ox 98.7 F 62 20 131/83 98 06/23/17 08:31 06/23/17 08:31 06/23/17 08:31 06/23/17 08:31 06/23/17 08:31 - Medications Medications: Current Medications Aspirin (Ecotrin) 81 mg PO DAILY [facility] Last Admin: 06/23/17 08:54 Dose: 81 mg Carbamazepine (Tegretol-Xr) 300 mg PO Q12 [facility] Last Admin: 06/23/17 08:55 Dose: 300 mg Escitalopram Oxalate (Lexapro) 10 mg PO DAILY [facility] Last Admin: 06/23/17 08:54 Dose: 10 mg Dexamethasone 4 mg/ Sodium (Chloride) 51 mls @ 102 mls/hr IVPB Q6 [facility] Meclizine HCl (Antivert) 25 mg PO Q8 [facility] Last Admin: 06/23/17 08:54 Dose: 25 mg Oxycodone/Acetaminophen (Percocet 5/325 Mg Tab) 2 tab PO Q4 PRN PRN Reason: Pain, severe (8-10) Stop: 06/24/17 06:44 Last Admin: 06/21/17 17:27 Dose: 2 tab - Labs Labs: 06/21/17 08:30 06/21/17 08:30 PT 12.1 Seconds (9.8-13.1) 06/21/17 08:30 INR 1.2 (0.9-1.2) 06/21/17 08:30 APTT 27.7 Seconds (25.6-37.1) 06/21/17 08:30 - Constitutional Appears: Chronically Ill - Head Exam Additional comments: R Craneotomy - Eye Exam Eye Exam: PERRL - Neck Exam Neck Exam: Normal Inspection - Respiratory Exam Respiratory Exam: Clear to Ausculation Bilateral - Cardiovascular Exam Cardiovascular Exam: REGULAR RHYTHM - GI/Abdominal Exam GI & Abdominal Exam: Soft, Normal Bowel Sounds - Back Exam Back Exam: NORMAL INSPECTION - Neurological Exam Neurological Exam: Alert, Oriented x3 Additional comments: increased cordination LUE, still unable to do finger nose , but better than yesterday, minimal L pronator drift, weakness LLE as previously - Psychiatric Exam Psychiatric exam: Anxious - Skin Skin Exam: Warm Assessment and Plan (1) Gait instability Status: Acute (2) Head injury Status: Acute (3) Headache Status: Resolved (4) Hx of seizure disorder Status: Chronic (5) Hx of fall Status: Chronic (6) History of brain tumor Status: Resolved - Assessment and Plan (Free Text) Plan: Neck -Head CTA negative , mass R Thyroid , to have Thyroid US , PT recommended Acute Rehab, discussed with Patient, continue rest of treatment.
[2017-06-23] MEDS: Dexamethasone 4 MG in Sodium Chloride 0.9% 50 ML IVPB SCH ×2 (16:52→21:54)
[2017-06-24] MEDS: Dexamethasone 4 MG in Sodium Chloride 0.9% 50 ML IVPB SCH ×4 (05:00→21:24)
[2017-06-24 07:07] LABS: HEMATOCRIT 42.2 % (35.0-51.0); MEAN CELL VOLUME 91.5 fl (80.0-94.0); MEAN CORPUSCULAR HEMOGLOBIN 31.3 pg (27.0-31.0); MEAN CORPUSCULAR HGB CONC 34.2 g/dL (33.0-37.0); RED CELL DISTRIBUTION WIDTH 12.7 % (11.5-14.5); WHITE BLOOD COUNT 6.2 K/uL (4.8-10.8)
[2017-06-24 07:16] LABS: BLOOD UREA NITROGEN 10 mg/dl (9-20); CALCIUM 9.6 mg/dL (8.4-10.2); CARBON DIOXIDE 25 mmol/L (22-30); CHLORIDE 101 mmol/L (98-107); GFR AFRICAN-AMERICAN > 60; GLUCOSE,RANDOM 118 mg/dL (75-110); POTASSIUM 4.2 MMOL/L (3.6-5.0); SODIUM 138 mmol/l (132-148)
--- NOTE | 2017-06-24 12:25 | US ---
PROCEDURE: Duplex ultrasound of the carotid and vertebral arteries. HISTORY: Dizziness, headaches COMPARISON: None available. TECHNIQUE: Grayscale and duplex Doppler evaluation of the cervical carotid and vertebral arteries were performed. The common carotid, carotid bifurcations and cervical ICA and proximal ECA were evaluated. The vertebral arteries were evaluated for gross patency and direction. FINDINGS: RIGHT CAROTID ARTERIES: Common Carotid Artery: Normal. Maximal flow velocity of 66.2 cm/s. Carotid Bifurcation: Normal. Internal Carotid Artery:Normal. Maximal flow velocity of 65.3 cm/s. External Carotid Artery (proximal branches): Normal. Maximal flow velocity of 81.0 cm/s. ICA/CCA Ratio: 1.5 LEFT CAROTID ARTERIES: Common Carotid Artery: Normal. Maximal flow velocity of 75.6 cm/s. Carotid Bifurcation: Normal. Internal Carotid Artery:Normal. Maximal flow velocity of 56.6 cm/s. External Carotid Artery (proximal branches): Normal. Maximal flow velocity of 60.7 cm/s. ICA/CCA Ratio: 1.2 VERTEBRAL ARTERIES: Right Vertebral Artery: Patent. Antegrade flow. Left Vertebral Artery: Patent. Antegrade flow. OTHER FINDINGS: None. IMPRESSION: Normal Duplex Doppler of the cervical carotid and vertebral arteries.
--- NOTE | 2017-06-24 16:27 | CP.PCM.PN ---
Subjective - Date & Time of Evaluation Date of Evaluation: 06/24/17 Time of Evaluation: 15:00 - Subjective Subjective: control improved LUE Objective - Vital Signs/Intake and Output Vital Signs (last 24 hours): Temp Pulse Resp BP Pulse Ox 98.6 F 76 20 119/81 97 06/24/17 16:12 06/24/17 16:12 06/24/17 16:12 06/24/17 16:12 06/24/17 16:12 - Medications Medications: Current Medications Aspirin (Ecotrin) 81 mg PO DAILY [facility] Last Admin: 06/24/17 08:45 Dose: 81 mg Carbamazepine (Tegretol-Xr) 300 mg PO Q12 [facility] Last Admin: 06/24/17 08:44 Dose: 300 mg Escitalopram Oxalate (Lexapro) 10 mg PO DAILY [facility] Last Admin: 06/24/17 08:45 Dose: 10 mg Dexamethasone 4 mg/ Sodium (Chloride) 51 mls @ 102 mls/hr IVPB Q6 [facility] Last Admin: 06/24/17 15:58 Dose: 102 mls/hr Meclizine HCl (Antivert) 25 mg PO Q8 [facility] Last Admin: 06/24/17 16:00 Dose: 25 mg - Labs Labs: 06/24/17 05:40 06/24/17 05:40 PT 12.1 Seconds (9.8-13.1) 06/21/17 08:30 INR 1.2 (0.9-1.2) 06/21/17 08:30 APTT 27.7 Seconds (25.6-37.1) 06/21/17 08:30 - Constitutional Appears: No Acute Distress - Head Exam Additional comments: R Craneotomy - Eye Exam Eye Exam: PERRL - ENT Exam ENT Exam: Normal Exam - Neck Exam Neck Exam: Normal Inspection - Respiratory Exam Respiratory Exam: Clear to Ausculation Bilateral - Cardiovascular Exam Cardiovascular Exam: REGULAR RHYTHM - GI/Abdominal Exam GI & Abdominal Exam: Soft, Normal Bowel Sounds - Extremities Exam Extremities Exam: Normal Inspection - Back Exam Back Exam: NORMAL INSPECTION - Neurological Exam Neurological Exam: Alert, Oriented x3 Additional comments: control improved on LUE , almost able to do finger nose , weakness LUE > LLE - Psychiatric Exam Psychiatric exam: Normal Affect - Skin Skin Exam: Warm Assessment and Plan (1) Gait instability Status: Acute (2) Head injury Status: Acute (3) Headache Status: Resolved (4) Hx of seizure disorder Status: Chronic (5) Hx of fall Status: Chronic (6) History of brain tumor Status: Resolved (7) Multiple thyroid nodules Status: Chronic - Assessment and Plan (Free Text) Plan: Thyroid US multiple Thyroid nodules , large nodule R lobe , f/u Endocrine consult , continue Dexamethasone, Tegretol , Meclizine , for AR
--- NOTE | 2017-06-24 18:19 | US ---
HISTORY: Thyroid mass per CTA report TECHNIQUE: Sonographic evaluation of the thyroid gland. COMPARISON: FINDINGS: RIGHT LOBE: Measures 4.7 x 2.1 x 1.7 cm. A large nodule seen at the midpole right lobe measuring 2.4 x 1.7 x 1.7 cm increase in blood flow relative to the surrounding otherwise unremarkable thyroid parenchyma. LEFT LOBE: Measures 4.6 x 1.3 x 1.1 cm. Normal echotexture and flow. Nodules: Upper pole hypoechoic nodule measures 0.7 x 0.4 x 0.6 cm with a midpole nodule partially cystic measuring 0.6 x 0.4 x 0.6 cm. A lower pole hypoechoic nodule measures 1.3 x 0.6 by 0.9 cm with nearly adjacent nodule inferior to it measuring 0.7 x 0.3 x 0.6 cm. These nodules exhibit peripheral hypervascularity. ISTHMUS: Measures 0.3 cm. Normal echotexture and flow. Nodules: None OTHER FINDINGS: None . IMPRESSION: Multiple thyroid nodules are appreciated in both lobes with the dominant nodule identified in the right lobe measuring 2.4 cm greatest dimension. Findings may represent goiter. Consider tissue diagnosis of right lobe dominant lesion however. Clinical and sonographic follow-up are advised.
[2017-06-25] MEDS: Dexamethasone 4 MG in Sodium Chloride 0.9% 50 ML IVPB SCH ×4 (04:56→21:18)
--- NOTE | 2017-06-25 13:10 | CP.PCM.PN ---
Subjective - Date & Time of Evaluation Date of Evaluation: 06/25/17 Time of Evaluation: 13:08 - Subjective Subjective: Mr. Huizar was seen and examined today at bedside. He had his lunch in front of him, but did not eat much until it was placed toward the right side of his visual field. He said that his headache feels much improved and he has more control of his left arm. However, he was slightly dysarthric as compared to my last conversation with him. Objective - Vital Signs/Intake and Output Vital Signs (last 24 hours): Temp Pulse Resp BP Pulse Ox 98.0 F 61 18 118/81 98 06/25/17 07:47 06/25/17 07:47 06/25/17 07:47 06/25/17 07:47 06/25/17 07:47 - Medications Medications: Current Medications Aspirin (Ecotrin) 81 mg PO DAILY [facility] Last Admin: 06/25/17 09:52 Dose: 81 mg Carbamazepine (Tegretol-Xr) 300 mg PO Q12 [facility] Last Admin: 06/25/17 09:51 Dose: 300 mg Escitalopram Oxalate (Lexapro) 10 mg PO DAILY [facility] Last Admin: 06/25/17 09:52 Dose: 10 mg Dexamethasone 4 mg/ Sodium (Chloride) 51 mls @ 102 mls/hr IVPB Q6 [facility] Last Admin: 06/25/17 09:52 Dose: 102 mls/hr Meclizine HCl (Antivert) 25 mg PO Q8 [facility] Last Admin: 06/25/17 09:52 Dose: 25 mg - Labs Labs: 06/24/17 05:40 06/24/17 05:40 PT 12.1 Seconds (9.8-13.1) 06/21/17 08:30 INR 1.2 (0.9-1.2) 06/21/17 08:30 APTT 27.7 Seconds (25.6-37.1) 06/21/17 08:30 - Neurological Exam Neurological Exam: Abnormal Gait, Alert, Awake, CN II-XII Intact, Oriented x3 Neuro motor strength exam: Left Upper Extremity: 3, Right Upper Extremity: 5, Left Lower Extremity: 3, Right Lower Extremity: 5 Additional comments: Slightly dysarthric. Assessment and Plan (1) Gait instability Assessment & Plan: Will transfer to acute rehab when stable for further management. Will check the carbamazepine level today. Continue steroids and repeat MRI of the brain tomorrow. Status: Acute (2) Headache Status: Resolved
--- NOTE | 2017-06-25 16:45 | CP.PCM.PN ---
Subjective - Date & Time of Evaluation Date of Evaluation: 06/25/17 Time of Evaluation: 14:00 - Subjective Subjective: feeling well, feels has regain increase control of LUE , AO x 3 , no disarthria now, reported by nurse earlier that He did not understand what He was doing and also with disarthria earlier Objective - Vital Signs/Intake and Output Vital Signs (last 24 hours): Temp Pulse Resp BP Pulse Ox 99.1 F 70 18 145/85 93 L 06/25/17 16:25 06/25/17 16:25 06/25/17 16:25 06/25/17 16:25 06/25/17 16:25 - Medications Medications: Current Medications Aspirin (Ecotrin) 81 mg PO DAILY [facility] Last Admin: 06/25/17 09:52 Dose: 81 mg Carbamazepine (Tegretol-Xr) 300 mg PO Q12 [facility] Last Admin: 06/25/17 09:51 Dose: 300 mg Escitalopram Oxalate (Lexapro) 10 mg PO DAILY [facility] Last Admin: 06/25/17 09:52 Dose: 10 mg Dexamethasone 4 mg/ Sodium (Chloride) 51 mls @ 102 mls/hr IVPB Q6 [facility] Last Admin: 06/25/17 09:52 Dose: 102 mls/hr Sodium Chloride (Sodium Chloride 0.9%) 1,000 mls @ 100 mls/hr IV .Q10H [facility] Stop: 06/26/17 14:55 Meclizine HCl (Antivert) 25 mg PO Q8 [facility] Last Admin: 06/25/17 09:52 Dose: 25 mg - Labs Labs: 06/24/17 05:40 06/24/17 05:40 PT 12.1 Seconds (9.8-13.1) 06/21/17 08:30 INR 1.2 (0.9-1.2) 06/21/17 08:30 APTT 27.7 Seconds (25.6-37.1) 06/21/17 08:30 - Constitutional Appears: No Acute Distress - Head Exam Additional comments: R craneotomy - Eye Exam Eye Exam: PERRL - ENT Exam ENT Exam: Normal Exam - Neck Exam Neck Exam: Normal Inspection - Respiratory Exam Respiratory Exam: Clear to Ausculation Bilateral - Cardiovascular Exam Cardiovascular Exam: REGULAR RHYTHM - GI/Abdominal Exam GI & Abdominal Exam: Soft, Normal Bowel Sounds - Extremities Exam Extremities Exam: Normal Inspection - Back Exam Back Exam: NORMAL INSPECTION - Neurological Exam Neurological Exam: Alert, Oriented x3 Additional comments: increased control LUE , able to do finger nose , no pronator drift LUE , 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
[2017-06-25] MEDS: Sodium Chloride 0.9% 1,000 ML IV SCH (16:56)
[2017-06-26] MEDS: Sodium Chloride 0.9% 1,000 ML IV SCH (01:00)
[2017-06-26] MEDS: Dexamethasone 4 MG in Sodium Chloride 0.9% 50 ML IVPB SCH ×4 (04:06→21:15)
--- NOTE | 2017-06-26 13:07 | CP.PCM.PN ---
Subjective - Date & Time of Evaluation Date of Evaluation: 06/26/17 Time of Evaluation: 12:00 - Subjective Subjective: F/U Gait instability. Pt with no A/D, feels has more control of the LUE, alert. oriented, speech not slurry. Objective - Vital Signs/Intake and Output Vital Signs (last 24 hours): Temp Pulse Resp BP Pulse Ox 98 F 64 20 138/83 98 06/26/17 08:55 06/26/17 08:55 06/26/17 08:55 06/26/17 08:55 06/26/17 08:55 - Medications Medications: Current Medications Aspirin (Ecotrin) 81 mg PO DAILY [facility] Last Admin: 06/26/17 09:36 Dose: 81 mg Carbamazepine (Tegretol-Xr) 300 mg PO Q12 [facility] Last Admin: 06/26/17 09:37 Dose: 300 mg Escitalopram Oxalate (Lexapro) 10 mg PO DAILY [facility] Last Admin: 06/26/17 09:37 Dose: 10 mg Dexamethasone 4 mg/ Sodium (Chloride) 51 mls @ 102 mls/hr IVPB Q6 [facility] Last Admin: 06/26/17 09:36 Dose: 102 mls/hr Sodium Chloride (Sodium Chloride 0.9%) 1,000 mls @ 100 mls/hr IV .Q10H [facility] Stop: 06/26/17 14:55 Last Admin: 06/26/17 01:00 Dose: 100 mls/hr Lorazepam (Ativan) 1 mg IVP ONCE ONE Stop: 06/26/17 15:01 Meclizine HCl (Antivert) 25 mg PO Q8 [facility] Last Admin: 06/26/17 09:35 Dose: Not Given - Labs Labs: 06/24/17 05:40 06/24/17 05:40 PT 12.1 Seconds (9.8-13.1) 06/21/17 08:30 INR 1.2 (0.9-1.2) 06/21/17 08:30 APTT 27.7 Seconds (25.6-37.1) 06/21/17 08:30 - Constitutional Appears: No Acute Distress - Head Exam Additional comments: R Craneotomy - Eye Exam Eye Exam: PERRL - ENT Exam ENT Exam: Normal Exam - Neck Exam Neck Exam: Normal Inspection - Respiratory Exam Respiratory Exam: Clear to Ausculation Bilateral - Cardiovascular Exam Cardiovascular Exam: REGULAR RHYTHM - GI/Abdominal Exam GI & Abdominal Exam: Soft, Normal Bowel Sounds - Extremities Exam Extremities Exam: Normal Inspection - Back Exam Back Exam: NORMAL INSPECTION - Neurological Exam Neurological Exam: Alert, Oriented x3 Additional comments: Increased control LUE, able to do finger nose with L hand, 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 - Psychiatric Exam Psychiatric exam: Normal Mood - Skin Skin Exam: Warm Assessment and Plan (1) Gait instability Status: Acute (2) Head injury Status: Acute (3) Headache Status: Resolved (4) Hx of seizure disorder Status: Chronic (5) Hx of fall Status: Chronic (6) History of brain tumor Status: Resolved (7) Multiple thyroid nodules Status: Chronic - Assessment and Plan (Free Text) Plan: F/U MRI of the Brain, Endocrinology consult.
[2017-06-26] MEDS ORDERED: Gadodiamide 287 MG/ML VIAL (15ML) IV ONE (16:53)
--- NOTE | 2017-06-26 18:05 | CON ---
This is a 46-year-old male with known history of glioblastoma where upon he underwent surgical resection about 20 years ago with subsequent radiation therapy and since then has been able to function and resume work although he has residual weakness in the left lower extremity as noted thereof. He also continues to have left sided hemianopsia as noted. PAST MEDICAL HISTORY: His extensive past medical history as mentioned above, history of right occipital malignant brain mass, removed about 20 years ago and apparently glioblastoma with subsequent radiation therapy. He also has subsequent seizure which have resolved at this time, but currently still on Tegretol maintenance therapy as given. History of generalized anxiety and depression and currently on Lexapro given as 1110 mg once daily. FAMILY HISTORY Positive for hypertension and heart disease. SOCIAL HISTORY The patient has supportive family. No known substance use. REVIEW OF SYSTEMS As mentioned above. Admits to generalized body weakness with episodic bouts of bifrontal headaches with lightheadedness and dizziness that results spontaneously, also admits to visual impairment at the left side as mentioned, also admits to easy fatigability and tiredness with suboptimal energy level. No chest pains or palpitations or PND. His oral intake has been variable with occasional dyspepsia and vague upper abdominal pains. No recent alterations of bowel and urinary patterns. PHYSICAL EXAMINATION VITAL SIGNS: This is an average built male in no apparent distress with blood pressure of 140/80, pulse of 70 beats per minute and regular, temperature 98, respirations 20, height is 6 feet, weight is 235 pounds. HEENT: Head is normocephalic. Eyes are anicteric with pink conjunctivae. Fundus going to be possible at this time. Ears, nose, and throat are otherwise normal. NECK: Supple. Thyroid gland is normal in size both carotid bruits or any cervical adenopathy. CARDIOPULMONARY: Some adynamic precordium. S1, S2 is rapid and regular. LUNGS: Clear to auscultation. ABDOMEN: Flat and soft with positive bowel sounds. EXTREMITIES: No peripheral edema. Pulses are +2 bilaterally. LABORATORY His chemistry showed a BUN of 10, sodium 138, potassium 4.2, chloride 101, CO2 25, glucose 118, and creatinine 0.7. His total T4 is 89 with a TSH of 0.44 and a total T3 of 0.917. ASSESSMENT AND PLAN This is a 46-year-old male with a recent accidental fall, sustained at home from apparent dysequilibrium and gait instability, admitted now for further workup and management especially in the light of the previous known history of glioblastoma with prior resection and radiation therapy and is being referred now for evaluation of abnormal thyroid function studies. He remains clinically euthyroid and biochemically as evidence of the so called acute sick euthyroid syndrome, especially with the recent physical stressors as noted. The remote possibility of the so-called tertiary hypothyroidism is being brought into the possibility, although the location of his tumor would be unlikely to cause compression of the pituitary gland area. The repeat MRI is pending at this time. Plan of management will obtain a comprehensive thyroid hormone profile and repeat the thyroid testing that includes thyroid antibodies, which will confirm and/or indicate the presence of any underlying thyroid autoimmunity. We will hold off any kind of thyroid pharmacotherapy at this time pending the availability of the aforementioned. Gaby Pope MD
--- NOTE | 2017-06-26 19:27 | MRI ---
PROCEDURE: MRI BRAIN WITH AND WITHOUT CONTRAST HISTORY: re-evaluate edema after steroids COMPARISON: Comparison is made to the previous study dated 06/22/2017 TECHNIQUE: Multiplanar, multisequence MR images of the brain were obtained with and without intravenous contrast enhancement. 20 cc of Omniscan was injected intravenously. FINDINGS: HEMORRHAGE: None DWI: No evidence of an acute or early subacute infarction. BRAIN PARENCHYMA: Again seen are post surgical changes at the right occipital parietal lobe with cystic encephalomalacia. Again seen is a adjacent vasogenic edema at the right occipital lobe. There is also vasogenic edema again noted at the left occipital parietal lobe. Atrophy and chronic microvascular white matter ischemic changes are again noted. ENHANCEMENT: There are small punctate and linear foci of enhancement seen at the right posterior parietal lobe adjacent to the encephalomalacia without evidence of discrete enhancing mass. VENTRICLES: Ex vacuo dilatation of the right lateral ventricle is noted. CRANIUM: Post craniotomy changes at the right occipital posterior parietal region is again noted. ORBITS: Grossly unremarkable. PARANASAL SINUSES/MASTOIDS: Clear VASCULAR SYSTEM: Skull base flow voids intact. OTHER FINDINGS: None . IMPRESSION: Overall no significant interval change when compared with the previous study dated 06/22/2017. Re- demonstration of postsurgical changes at the right occipital posterior parietal lobe. Re- demonstration of small adjacent vasogenic edema.
[2017-06-27] MEDS: Dexamethasone 4 MG in Sodium Chloride 0.9% 50 ML IVPB SCH ×2 (04:01→10:31)
[2017-06-27 06:47] VITALS: PULSE 59
[2017-06-27 06:55] LABS: T4 4.93 ug/dl (5.5-11.0)
[2017-06-27 07:08] LABS: THYROID STIMULATING HORMONE 2.96 mIU/ML (0.46-4.68)
[2017-06-27 08:34] VITALS: BP 114/75; RESP 18; TEMP 98.4; O2SAT 98
[2017-06-27 12:45] LABS: CORTISOL AM 0.8 ug/dL (4.46-22.7)
--- NOTE | 2017-06-27 13:58 | CP.PCM.PN ---
Subjective - Date & Time of Evaluation Date of Evaluation: 06/27/17 Time of Evaluation: 13:55 - Subjective Subjective: Mr. Huizar was seen and examined today while he sat up in the chair. He did not have any complaints and said that he was improving with regard to the left arm weakness and coordination difficulty. His speech was clear and there were no acute events overnight. I discussed the results of his tests with him and the plan for acute rehab. Objective - Vital Signs/Intake and Output Vital Signs (last 24 hours): Temp Pulse Resp BP Pulse Ox 98.4 F 59 L 18 114/75 98 06/27/17 08:34 06/27/17 08:34 06/27/17 08:34 06/27/17 08:34 06/27/17 08:34 - Medications Medications: Current Medications Aspirin (Ecotrin) 81 mg PO DAILY [facility] Last Admin: 06/27/17 10:27 Dose: 81 mg Carbamazepine (Tegretol-Xr) 300 mg PO Q12 [facility] Last Admin: 06/27/17 10:27 Dose: 300 mg Escitalopram Oxalate (Lexapro) 10 mg PO DAILY [facility] Last Admin: 06/27/17 10:27 Dose: 10 mg Dexamethasone 4 mg/ Sodium (Chloride) 51 mls @ 102 mls/hr IVPB Q6 [facility] Last Admin: 06/27/17 10:31 Dose: 102 mls/hr Meclizine HCl (Antivert) 25 mg PO Q8 [facility] Last Admin: 06/27/17 10:24 Dose: Not Given - Labs Labs: 06/24/17 05:40 06/24/17 05:40 PT 12.1 Seconds (9.8-13.1) 06/21/17 08:30 INR 1.2 (0.9-1.2) 06/21/17 08:30 APTT 27.7 Seconds (25.6-37.1) 06/21/17 08:30 - Neurological Exam Neurological Exam: Abnormal Gait, Alert, CN II-XII Intact, Oriented x3 Neuro motor strength exam: Left Upper Extremity: 4, Right Upper Extremity: 5, Left Lower Extremity: 4, Right Lower Extremity: 5 Additional comments: Left side homonomous hemianopsia and neglect. Assessment and Plan (1) Gait instability Assessment & Plan: Will continue a decadron taper, continue current dose of Tegretol. PT/OT in acute rehab. DVT Px. Status: Acute (2) Headache Status: Resolved
--- NOTE | 2017-06-27 16:18 | CP.PCM.PN ---
Subjective - Date & Time of Evaluation Date of Evaluation: 06/27/17 Time of Evaluation: 11:30 - Subjective Subjective: F/U Gait Instability. Pt awake, states has great control of U/E, weakness lower extremity the same. Objective - Vital Signs/Intake and Output Vital Signs (last 24 hours): Temp Pulse Resp BP Pulse Ox 98.4 F 59 L 18 114/75 98 06/27/17 08:34 06/27/17 08:34 06/27/17 08:34 06/27/17 08:34 06/27/17 08:34 - Labs Labs: 06/24/17 05:40 06/24/17 05:40 PT 12.1 Seconds (9.8-13.1) 06/21/17 08:30 INR 1.2 (0.9-1.2) 06/21/17 08:30 APTT 27.7 Seconds (25.6-37.1) 06/21/17 08:30 - Constitutional Appears: No Acute Distress - Head Exam Additional comments: R Craneotomy - Eye Exam Eye Exam: PERRL - ENT Exam ENT Exam: Normal Exam - Neck Exam Neck Exam: Normal Inspection - Respiratory Exam Respiratory Exam: Clear to Ausculation Bilateral - Cardiovascular Exam Cardiovascular Exam: REGULAR RHYTHM - GI/Abdominal Exam GI & Abdominal Exam: Soft, Normal Bowel Sounds - Extremities Exam Extremities Exam: Normal Inspection - Back Exam Back Exam: NORMAL INSPECTION - Neurological Exam Neurological Exam: Alert, Oriented x3 Additional comments: Able to do finger nose with his L hand,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 - Psychiatric Exam Psychiatric exam: Normal Affect - Skin Skin Exam: Warm Assessment and Plan (1) Gait instability Status: Acute (2) Head injury Status: Acute (3) Headache Status: Resolved (4) Hx of seizure disorder Status: Chronic (5) Hx of fall Status: Chronic (6) History of brain tumor Status: Resolved (7) Multiple thyroid nodules Status: Chronic - Assessment and Plan (Free Text) Plan: Pt To be transferred to acute rehab [facility], I will f/u patient in this facility.
--- NOTE | 2017-06-27 19:49 | PN ---
ENDOCRINOLOGY FOLLOWUP NOTE LOCATION: Room #668. SUBJECTIVE: This is a 46-year-old male, admitted with an accidental fall and associated left-sided weakness, also now being followed closely for metabolic management because of initial abnormal thyroid function studies as noted. He has a significant history of a craniotomy for glioblastoma about 20 years ago and received radiation therapy at that time, and was doing fairly well until aforementioned manifestations prompting this admission. His latest chemistry showed a BUN of 10, sodium 138, potassium 4.2, chloride 101, CO2 25, glucose 118, creatinine 0.7. His thyroid studies done today showed a T4 of 4.93 with a free T4 of 0.64 and a TSH of 2.96. His serum cortisol level, however, is extremely low at 0.8 mcg/dL. His albumin level is 4.1 and normal. ASSESSMENT: This is 46-year-old male with significant history of glioblastoma and subsequent surgical resection, presenting here with a syncopal event, accidental fall, and episodic left-sided weakness, and currently being followed closely by Neurology at this time. He also remains clinically euthyroid and biochemically has evidence of the so called acute sick euthyroid syndrome with low normal total T4 and T3 levels as noted; however, the low cortisol value is quite a surprise and we have to exclude any underlying tertiary hypoadrenalism or adrenal insufficiency at this time. PLAN OF MANAGEMENT: As discussed with the patient, we will obtain repeat hormonal profile and we will do a Cortrosyn stimulation test with a baseline cortisol to be done on Monday and tomorrow followed by Cortrosyn given as 250 mcg IV push followed shortly in an hour of another serum cortisol level. This confirmatory test will actually confirm and/or negate the presence of underlying hypoadrenalism. We will follow and advise accordingly. Gaby Pope MD
[2017-06-27] MEDS ORDERED: Dexamethasone 4 MG in Sodium Chloride 0.9% 50 ML IVPB SCH (21:00)
== END 2017-06-27 16:00 | DRG 93 ==
LOC: H.ER 18:04 → H.ERHOLD 23:00 → H.MEDSURG1 06-21 01:48 → OBSVTOIN 06-21 14:34 → H.MEDSURG1 06-21 18:18
PROVIDERS: ADMIT Internal Medicine Pulmonary Disease; ATTEND Internal Medicine Pulmonary Disease
PROC: 3E0234Z Introduction of Serum, Toxoid and Vaccine into Muscle, Percutaneous Approach (ICD-10-PCS; principal; 2017-06-21)
DX: R26.81 Unsteadiness on feet (principal); S09.90XA Unspecified injury of head, initial encounter; H53.47 Heteronymous bilateral field defects; F32.9 Major depressive disorder, single episode, unspecified; E07.81 Sick-euthyroid syndrome; F41.1 Generalized anxiety disorder; G40.909 Epilepsy, unspecified, not intractable, without status epilepticus; Z85.841 Personal history of malignant neoplasm of brain; R53.1 Weakness; Z23 Encounter for immunization; R51 Headache; E04.2 Nontoxic multinodular goiter; Y93.9 Activity, unspecified; Y92.002 Bathroom of unspecified non-institutional (private) residence as the place of occurrence of the external cause; W01.198A Fall on same level from slipping, tripping and stumbling with subsequent striking against other object, initial encounter

== ENCOUNTER 2017-06-27 14:08 | Inpatient (IN) | payer BC ==
[2017-06-27 15:53] VITALS: BMI 31.8
[2017-06-27] MEDS ORDERED: Influenza Vaccine 18yr & older 0.5 ML/45 MCG SYR IM ONE (17:01)
[2017-06-27] MEDS ORDERED: Dexamethasone 4 mg/1 ml IV SCH (21:00)
[2017-06-27] MEDS: Dexamethasone 4 MG in Sodium Chloride 0.9% 50 ML IVPB SCH (21:19)
--- NOTE | 2017-06-28 06:13 | CP.PCM.PCO ---
Addendum Addendum: 06/28/17 06:14 0545: Administered Cortrosyn 0.25mg/2mL of 0.9% NS over 2 minutes, approximately 20 minutes after initial blood draw. Vital signs will be checked Q15M until repeat blood draw to assess for adverse reaction.
[2017-06-28 06:38] LABS: ALB/GLOB RATIO 1.4 (1.0-2.1); ALKALINE PHOSPHATASE 62 U/L (38-126); ALT/SGPT 26 U/L (21-72); AST/SGOT 23 U/L (17-59); BILIRUBIN,TOTAL 0.5 mg/dl (0.2-1.3); BLOOD UREA NITROGEN 18 mg/dl (9-20); CARBON DIOXIDE 25 mmol/L (22-30); CHLORIDE 100 mmol/L (98-107); GFR AFRICAN-AMERICAN > 60; GLUCOSE,RANDOM 101 mg/dL (75-110); SODIUM 137 mmol/l (132-148)
[2017-06-28 07:04] LABS: THYROID STIMULATING HORMONE 5.18 mIU/ML (0.46-4.68)
[2017-06-28 07:19] LABS: POTASSIUM 4.6 MMOL/L (3.6-5.0)
[2017-06-28] MEDS: Dexamethasone 4 MG in Sodium Chloride 0.9% 50 ML IVPB SCH ×2 (08:36→21:34)
--- NOTE | 2017-06-28 11:16 | CP.PCM.PN ---
Subjective - Date & Time of Evaluation Date of Evaluation: 06/28/17 Time of Evaluation: 11:12 - Subjective Subjective: Mr. Huizar was seen and examined at the bedside. He is more responsive and attentive to conversation. He denies any headache, dizziness, lightheadedness, or vomiting. There was no untoward events overnight. Objective - Vital Signs/Intake and Output Vital Signs (last 24 hours): Temp Pulse Resp BP Pulse Ox 97.0 F L 58 L 20 116/79 100 06/27/17 20:26 06/28/17 06:45 06/28/17 06:45 06/28/17 06:45 06/28/17 06:45 - Medications Medications: Current Medications Acetaminophen (Tylenol 325mg Tab) 650 mg PO Q4 PRN PRN Reason: Fever >100.4 F Aspirin (Ecotrin) 81 mg PO DAILY [facility] Last Admin: 06/28/17 08:36 Dose: 81 mg Carbamazepine (Tegretol-Xr) 300 mg PO Q12 [facility] Last Admin: 06/28/17 08:36 Dose: 300 mg Escitalopram Oxalate (Lexapro) 10 mg PO DAILY [facility] Last Admin: 06/28/17 08:36 Dose: 10 mg Dexamethasone 4 mg/ Sodium (Chloride) 51 mls @ 102 mls/hr IVPB Q12 [facility] Last Admin: 06/28/17 08:36 Dose: 102 mls/hr Meclizine HCl (Antivert) 25 mg PO Q8 PRN PRN Reason: Dizziness Pantoprazole Sodium (Protonix Ec Tab) 40 mg PO 0630 [facility] Zolpidem Tartrate (Ambien) 5 mg PO HS PRN PRN Reason: Insomnia - Labs Labs: 06/28/17 05:15 - Constitutional Appears: Well - Head Exam Head Exam: ATRAUMATIC, NORMAL INSPECTION, NORMOCEPHALIC - Neurological Exam Neurological Exam: Alert, Awake, Oriented x3 Neuro motor strength exam: Left Upper Extremity: 4, Right Upper Extremity: 5, Left Lower Extremity: 4, Right Lower Extremity: 5 Additional comments: Neurological improved from previous examination . There is no more left hand drift, but remains with left side weakness. Assessment and Plan (1) Hx of seizure disorder Assessment & Plan: Case discussed with Dr. Jerez, continue current medical, physical, occupation, and speech therapies. No new recommendations from neurology. Status: Chronic
--- NOTE | 2017-06-28 11:18 | CP.PCM.HP ---
History of Present Illness - History of Present Illness History of Present Illness: CC: Unstable gait LUE/LLE. 46 y/o M, Hx of Glioblastoma R Occipital s/p resection and radiation 20 yrs was admitted to [facility] on 06/21/17 due to fall and trauma 2nd to L side weaknesses. On 06/27/17 Pt was transferred from Med/Surg [facility] to Acute Rehab Unit to continue with Physical and Occupational Therapy due to his L side debility, Pt lives in an apartment with 7 steps from out side to inside his apartment and is in need of these therapies to increase his functional mobility skills. Pt denied: Fever, chills, v/n/d, abdominal pain, CP, SOB. PMHx: Hx Malignant Brain Tumor resected 20 yrs ago, Seizure Disorder, Hx falls 2nd to lack of coordination, Headache, Hx Hemianopia for 22 yrs, Depression. Present on Admission - Present on Admission Any Indicators Present on Admission: No Review of Systems - Constitutional Constitutional: Weakness - EENT Eyes: Loss of Vision (L eye) Ears: Other (negative) Nose/Mouth/Throat: Other (negative) - Cardiovascular Cardiovascular: Other (negative) - Respiratory Respiratory: Other (negative) - Gastrointestinal Gastrointestinal: Other (negative) - Genitourinary Genitourinary: Other (negative) - Musculoskeletal Musculoskeletal: Other (negative) - Integumentary Integumentary: Other (negative) - Neurological Neurological: Abnormal Gait, Dizziness, Weakness - Psychiatric Psychiatric: Anxiety, Depression - Endocrine Endocrine: Other (negative) - Hematologic/Lymphatic Hematologic: Other (negative) Past Patient History - Past Medical History & Family History Past Medical History?: Yes Pertinent Family History: Unknown - Past Social History Smoking Status: Never Smoked Alcohol: None Drugs: Denies Home Situation {Lives}: Alone - CARDIAC Hx Cardiac Disorders: No - PULMONARY Hx Respiratory Disorders: No - NEUROLOGICAL Hx Neurological Disorder: Yes Hx Migraine: Yes Hx Seizures: Yes Other/Comment: (+) GLIOBLASTOMA RIGHT OCCIPITAL AREA, S/P RESECTION AND RADIATION 20 YRS AGO - HEENT Other/Comment: (+) LEFT HEMIANOPSIA - RENAL Hx Chronic Kidney Disease: No - ENDOCRINE/METABOLIC Hx Endocrine Disorders: Yes Other/Comment: (+) MULTIPLE THYROIS NODULES - HEMATOLOGICAL/ONCOLOGICAL Hx Blood Disorders: No - INTEGUMENTARY Hx Dermatological Problems: No - MUSCULOSKELETAL/RHEUMATOLOGICAL Hx Musculoskeletal Disorders: Yes Hx Falls: Yes Hx Unsteady Gait: Yes - GASTROINTESTINAL Hx Gastrointestinal Disorders: No - GENITOURINARY/GYNECOLOGICAL Hx Genitourinary Disorders: No - PSYCHIATRIC Hx Psychophysiologic Disorder: Yes Hx Anxiety: Yes Hx Depression: Yes Hx Substance Use: No - SURGICAL HISTORY Hx Surgeries: Yes Other/Comment: RESECTION OF RIGHT OCCIPITAL GLIOBLASTOMA 20 YRS AGO - ANESTHESIA Hx Anesthesia: Yes Hx Anesthesia Reactions: No Meds Allergies/Adverse Reactions: Allergies Allergy/AdvReac Type Severity Reaction Status Date / Time No Known Allergies Allergy Verified 06/27/17 16:36 Physical Exam - Constitutional Appears: No Acute Distress, Chronically Ill - Head Exam Additional comments: R Craniotomy - Eye Exam Eye Exam: PERRL - ENT Exam ENT Exam: Normal Exam - Neck Exam Neck exam: Positive for: Normal Inspection - Respiratory Exam Respiratory Exam: Clear to Auscultation Bilateral - Cardiovascular Exam Cardiovascular Exam: REGULAR RHYTHM - GI/Abdominal Exam GI & Abdominal Exam: Normal Bowel Sounds, Soft - Extremities Exam Extremities exam: Positive for: normal inspection - Back Exam Back exam: NORMAL INSPECTION - Neurological Exam Neurological exam: Alert, Oriented x3 Additional comments: speech clear ,able to follows commands, no L arm drift, able to do L finger nose , L Hemianopsia, weakness L sided. - Psychiatric Exam Psychiatric exam: Anxious, Depressed - Skin Skin Exam: Warm Results - Vital Signs Recent Vital Signs: Last Vital Signs Temp 97.0 F L 06/27/17 20:26 Pulse 58 L 06/28/17 06:45 Resp 20 06/28/17 06:45 BP 116/79 06/28/17 06:45 Pulse Ox 100 06/28/17 06:45 reviewed J.P. - Labs Result Diagrams: 07/02/17 08:00 Labs: Laboratory Results - last 24 hr 06/28/17 05:15 Sodium 137 Potassium 4.6 Chloride 100 Carbon Dioxide 25 Anion Gap 17 BUN 18 Creatinine 0.6 L Est GFR ( Amer) > 60 Est GFR (Non-Af Amer) > 60 Random Glucose 101 Calcium 10.0 Total Bilirubin 0.5 AST 23 ALT 26 Alkaline Phosphatase 62 Total Protein 7.0 Albumin 4.1 Globulin 2.9 Albumin/Globulin Ratio 1.4 Thyroxine (T4) 5.50 TSH 3rd Generation 5.18 H reviewed J.P. Assessment & Plan (1) Gait instability Status: Acute Priority: High (2) Head injury Status: Acute Priority: High (3) Hx of fall Status: Chronic (4) Hx of seizure disorder Status: Chronic (5) Multiple thyroid nodules Status: Chronic (6) Anxiety Status: Acute (7) Depression Status: Acute - Assessment and Plan (Free Text) Plan: Continue Antivert, Tegretol, Synthroid and rest of medications, PT, OT. Neurology consult appreciated. Endocrinology and Psysiatry consult. - Date & Time Date: 06/28/17 Time: 09:10
--- NOTE | 2017-06-28 12:38 | PSY.TMCNF ---
Nursing - Vital Signs Vital Signs (Last 8 hours): Vital Signs 06/28/17 06/28/17 06/28/17 05:45 06:00 06:15 Pulse Rate 58 L 55 L 75 Respiratory 20 20 20 Rate Blood Pressure 113/75 115/76 125/81 O2 Sat by Pulse 98 99 98 Oximetry 06/28/17 06/28/17 06:30 06:45 Pulse Rate 55 L 58 L Respiratory 20 20 Rate Blood Pressure 119/75 116/79 O2 Sat by Pulse 100 100 Oximetry Pain: 0 - Medications/Other Issues Comment: to follow as per nutrition protocol - Bladder Management Bladder Pattern: Normal Voiding Method: Urinal - Bowel Management Bowel Pattern: Normal Physical Therapy - Pain Management Techniques: Medication - Assessment/Plan Assessment: Chuck Huizar presents with mild cognitive-linguistic deficits characterized by impaired thought organization, reasoning, short-term memory, and problem solving. Pt would benefit from ST 3-5x/week for improved cognition and functional independence. - Provider License Number: [id number] Occupational Therapy - Arousal/Attention/Orientation Patient Orientation: Person, Place, Time, Appropriate to Age, Appropriate to Situation - Pain Alleviating Techniques: Medication - Assessment/Plan Assessment: Chuck Huizar presents with mild cognitive-linguistic deficits characterized by impaired thought organization, reasoning, short-term memory, and problem solving. Pt would benefit from ST 3-5x/week for improved cognition and functional independence. Speech Therapy - Consult Information Patient on Program: Yes Medical Diagnosis: debility; h/o glioblastoma with resection/chemo/radiation Treatment Diagnosis: mild cognitive deficits - Assessment Problem Solving Impairment: Mild Memory Impairment: Mild - Plan Assessment: Chuck Huizar presents with mild cognitive-linguistic deficits characterized by impaired thought organization, reasoning, short-term memory, and problem solving. Pt would benefit from ST 3-5x/week for improved cognition and functional independence. Plan: Continue Speech/Language Therapy Frequency: 3-5 times per week Duration: 1 week Goals/Timeframe: Please see IE completed 06/28/17 for goals/POC Recommendations: ST 3-5x/week - Provider Therapist: Benita Espinosa License Number: [id number] Recreational Therapy - Assessment Assessment/Plan: Chuck Huizar presents with mild cognitive-linguistic deficits characterized by impaired thought organization, reasoning, short-term memory, and problem solving. Pt would benefit from ST 3-5x/week for improved cognition and functional independence. Nutrition - Current Diet Current Diet/ Supplement/ Feedings: Regular diet - Appetite Percent Meal Consumed: 75-100% - Assessment/Goals/Time Frame Assessment/Goals/Time Frame: to follow as per nutrition protocol - Provider Provider: Celia Viera RD Case Management - Discharge Plan Discharge Plan: Home alone Rehabilitation Plan - Treatment Plan Treatment Plan: Physical Therapy, Occupational Therapy, Speech, Dietary, Patient /Family Education - Recommendation Recommendation: Physical Therapy, Occupational Therapy, Speech, Dietary, Patient /Family Education - Discharge Plan Discharge to: Home
--- NOTE | 2017-06-28 14:02 | CP.PCM.PN ---
Subjective - Date & Time of Evaluation Date of Evaluation: 06/28/17 Time of Evaluation: 10:00 - Subjective Subjective: no acute complaints Objective - Vital Signs/Intake and Output Vital Signs (last 24 hours): Temp Pulse Resp BP Pulse Ox 97.9 F 61 20 128/76 100 06/28/17 10:00 06/28/17 10:00 06/28/17 10:00 06/28/17 10:00 06/28/17 10:00 - Medications Medications: Current Medications Acetaminophen (Tylenol 325mg Tab) 650 mg PO Q4 PRN PRN Reason: Fever >100.4 F Aspirin (Ecotrin) 81 mg PO DAILY [facility] Last Admin: 06/28/17 08:36 Dose: 81 mg Carbamazepine (Tegretol-Xr) 300 mg PO Q12 [facility] Last Admin: 06/28/17 08:36 Dose: 300 mg Escitalopram Oxalate (Lexapro) 10 mg PO DAILY [facility] Last Admin: 06/28/17 08:36 Dose: 10 mg Dexamethasone 4 mg/ Sodium (Chloride) 51 mls @ 102 mls/hr IVPB Q12 [facility] Last Admin: 06/28/17 08:36 Dose: 102 mls/hr Lactulose (Enulose) 20 gm PO DAILY PRN PRN Reason: Constipation Levothyroxine Sodium (Synthroid) 75 mcg PO DAILY@0630 [facility] Meclizine HCl (Antivert) 25 mg PO Q8 PRN PRN Reason: Dizziness Pantoprazole Sodium (Protonix Ec Tab) 40 mg PO 0630 [facility] Zolpidem Tartrate (Ambien) 5 mg PO HS PRN PRN Reason: Insomnia - Labs Labs: 06/28/17 05:15 - Head Exam Head Exam: ATRAUMATIC, NORMAL INSPECTION, NORMOCEPHALIC Additional comments: hemianopsia - Eye Exam Eye Exam: EOMI, Normal appearance Pupil Exam: NORMAL ACCOMODATION - ENT Exam ENT Exam: Mucous Membranes Moist, Normal Exam - Respiratory Exam Respiratory Exam: NORMAL BREATHING PATTERN - Cardiovascular Exam Cardiovascular Exam: REGULAR RHYTHM - GI/Abdominal Exam GI & Abdominal Exam: Normal Bowel Sounds - Rectal Exam Rectal Exam: NORMAL INSPECTION - Exam External exam: NORMAL EXTERNAL EXAM - Extremities Exam Extremities Exam: Normal Capillary Refill, Normal Inspection - Back Exam Back Exam: NORMAL INSPECTION - Neurological Exam Neurological Exam: Alert, Awake Neuro motor strength exam: Left Upper Extremity: 3, Right Upper Extremity: 4, Left Lower Extremity: 3, Right Lower Extremity: 4 - Psychiatric Exam Psychiatric exam: Normal Affect, Normal Mood - Skin Skin Exam: Dry, Intact Assessment and Plan (1) Gait instability Status: Acute (2) Head injury Status: Acute (3) Hx of fall Status: Chronic (4) Hx of seizure disorder Status: Chronic (5) Multiple thyroid nodules Status: Chronic (6) Headache Status: Resolved Physiatry Overall Plan of Care - Overall Plan of Care Estimated Length of Stay in Weeks: 2 Rehab Impairment: Mobility, Gait, Cognition, Balance, Coordination Etiologic Diagnosis: Other - Anticipated Interventions Physical Therapy:: Yes Occupational Therapy:: Yes Speech Therapy:: Yes Recreational Therapy:: Yes - Therapy Goals Bed Mobility: Independent Ambulation: Independent Functional Positional Changes:: Independent - Discharge Plan Identification of Barriers to Discharge: Home Situation Discharge Destination: Home
--- NOTE | 2017-06-28 14:44 | PN ---
ENDOCRINOLOGY FOLLOWUP NOTE LOCATION: Room #627, Acute Rehab. SUMMARY: This is a 46-year-old male with known history of a brain resection for a glioblastoma, underwent radiation therapy, and has now been admitted for neurological evaluation because of left-sided weakness and recent unsteady gait and disequilibrium as noted thereof. Moreover, from the endocrine viewpoint, he was found to have abnormal thyroid function studies with a recent thyroid ultrasound showing the presence of a multinodular goiter with a dominant nodule in the right lobe of the thyroid as noted thereof. He denies any overt compressive or obstructive manifestations at this time. His repeat chemistries today showed a BUN of 18, sodium 137, potassium 4.6, chloride 100, CO2 25, glucose 101, and creatinine 0.6. The repeat thyroid studies, however, was a surprise as the initial thyroid levels showed values indicative of the so called acute sick euthyroid syndrome; however, the repeat levels done today for the thyroid studies showed a total T4 of 5.50 with a TSH of 5.18, indicative of early subclinical hypothyroidism as noted thereof. His serum cortisol levels were also quite low as noted with a baseline cortisol done today of 3.2 mcg/dL and a post 1-hour ACTH stimulation test showing a repeat cortisol of 11.3 mcg/dL which is actually a blended response of this above-mentioned hormonal testing. So at this time, we will actually be adding levothyroxine at 75 mcg once daily in the morning as ordered. We will hold off oral steroid therapy as he is currently on dexamethasone given as 4 mg twice daily as ordered. We will titrate incrementally as indicated to optimize metabolic control. We will obtain serial chemistries and supplement accordingly as needed. We will follow. Gaby Pope MD
--- NOTE | 2017-06-29 01:47 | CON ---
PHYSIATRY CONSULTATION DATE: 06/28/2017 HISTORY OF PRESENT ILLNESS: The patient is a 46-year-old male with general debility, deconditioning with the previous diagnosis of right occipital brain mass, glioblastoma, status post resection, radiation, also history of seizures, history of falls, history of hemianopsia. SOCIAL HISTORY: No history of drinking. No history of smoking. FAMILY HISTORY: Noncontributory. ALLERGIES: No known allergies. FUNCTIONAL STATUS: The patient lives alone, has 1 flight of steps to negotiate, was independent previously. MEDICATIONS: As per PMD. REVIEW OF SYSTEMS: The patient is alert, friendly, able to follow commands. The patient with hemianopsia. Otherwise, cranial nerves II through XII are intact. Motor, left upper and left lower extremity, tone normal, range motion is functional, muscle strength is fair. Right upper and right lower extremity, tone normal, range motion is functional, muscle strength is good. Sensation to pinprick and light touch intact. Deep tendon reflexes 2+ bilaterally. IMPRESSION: For the patient is general debility; deconditioning; gait difficulty; history of right occipital brain mass, glioblastoma, status post resection, radiation; history of falls; hemianopsia. PLAN: Physical therapy, occupational therapy, recreational therapy, and speech therapy for range of motion and strengthening, transfers, ambulation, gait training. Estimated length of stay for this patient is 2 weeks. Anticipated discharge plan is to go back to live at home with supportive services. Treatment goals for this patient to be independent in bed mobility, independent with supervision to functional and positional changes, independent to supervision for simple transfers, supervision and contact guard for complex transfers, independent to supervision to ambulation with assisted devices, supervision and contact guard for elevation. Kashmir Carrasco MD
[2017-06-29] MEDS: Pantoprazole 40 mg EC Tab PO SCH (06:22)
[2017-06-29] MEDS: Levothyroxine 75 MCG TAB PO SCH (06:22)
[2017-06-29] MEDS: Dexamethasone 4 MG in Sodium Chloride 0.9% 50 ML IVPB SCH ×2 (08:43→21:19)
--- NOTE | 2017-06-29 10:49 | CP.PCM.PN ---
Subjective - Date & Time of Evaluation Date of Evaluation: 06/29/17 Time of Evaluation: 10:47 - Subjective Subjective: Mr. Huizar was seen and examined at the bedside. He is more alert, oriented x3. He denies any headache, lightheadedness, dizziness, or numbness. Found patient drinking a cup of coffee with no signs of aspirations. There was no untoward events overnight. Objective - Vital Signs/Intake and Output Vital Signs (last 24 hours): Temp Pulse Resp BP Pulse Ox 97.5 F L 66 20 99/53 L 97 06/29/17 08:16 06/29/17 08:16 06/29/17 08:16 06/29/17 08:16 06/29/17 08:16 - Medications Medications: Current Medications Acetaminophen (Tylenol 325mg Tab) 650 mg PO Q4 PRN PRN Reason: Fever >100.4 F Aspirin (Ecotrin) 81 mg PO DAILY [facility] Last Admin: 06/29/17 08:43 Dose: 81 mg Carbamazepine (Tegretol-Xr) 300 mg PO Q12 [facility] Last Admin: 06/29/17 08:43 Dose: 300 mg Escitalopram Oxalate (Lexapro) 10 mg PO DAILY [facility] Last Admin: 06/29/17 08:43 Dose: 10 mg Dexamethasone 4 mg/ Sodium (Chloride) 51 mls @ 102 mls/hr IVPB Q12 [facility] Last Admin: 06/29/17 08:43 Dose: 102 mls/hr Lactulose (Enulose) 20 gm PO DAILY PRN PRN Reason: Constipation Levothyroxine Sodium (Synthroid) 75 mcg PO DAILY@0630 [facility] Last Admin: 06/29/17 06:22 Dose: 75 mcg Meclizine HCl (Antivert) 25 mg PO Q8 PRN PRN Reason: Dizziness Pantoprazole Sodium (Protonix Ec Tab) 40 mg PO 0630 [facility] Last Admin: 06/29/17 06:22 Dose: 40 mg Zolpidem Tartrate (Ambien) 5 mg PO HS PRN PRN Reason: Insomnia - Labs Labs: 06/28/17 05:15 - Constitutional Appears: Well - Head Exam Head Exam: ATRAUMATIC, NORMAL INSPECTION, NORMOCEPHALIC - Neurological Exam Neurological Exam: Alert, Awake, CN II-XII Intact, Oriented x3 Neuro motor strength exam: Left Upper Extremity: 4, Right Upper Extremity: 5, Left Lower Extremity: 4, Right Lower Extremity: 5 Additional comments: There is no more left arm drift. He is able to follow commands and answer questions appropriately. Assessment and Plan (1) Gait instability Assessment & Plan: Case discussed with Dr. Jerez, continue current medical, physical, occupational , and speech therapies. There is no new recommendations from neurology. Status: Acute
--- NOTE | 2017-06-29 15:03 | PN ---
ENDOCRINOLOGY FOLLOWUP NOTE DATE: LOCATION: Room #627. SUBJECTIVE: This is a 46-year-old male with frequent bouts of dizziness and lightheadedness and also episodic left-sided weakness with unsteady gait and currently undergoing neurological evaluation and followup and is now also being followed closely for metabolic management. Serial hormonal testing showed the presence of subclinical hypothyroidism and even a blunted response to the ACTH stimulation test as given. His latest chemistry showed a BUN of 18, sodium 137, potassium 4.6, chloride of 100, CO2 of 25, glucose 101, and creatinine 0.6. His thyroid studies showed a T4 of 5.50 with a TSH of 5.18 and a cortisol level done fasting of 3.2 mcg/dL and a post stimulation test of 11.3 mcg/dL. He has a previous significant history of craniotomy with a glioblastoma by a malignant process and received radiations therapy thereof. He is currently still on dexamethasone given as 4 mg at 12 hours as ordered. We will continue the levothyroxine given as 75 mcg, which was initiated today as noted. We will titrate incrementally as indicated to optimize metabolic control. We will obtain serial thyroid studies, serial cortisol levels, and even serial electrolytes and supplement accordingly as needed. We will follow. Gaby Pope MD
[2017-06-30] MEDS: Levothyroxine 75 MCG TAB PO SCH (07:06)
[2017-06-30] MEDS: Pantoprazole 40 mg EC Tab PO SCH (07:06)
[2017-06-30] MEDS: Dexamethasone 4 MG in Sodium Chloride 0.9% 50 ML IVPB SCH ×2 (09:00→11:33)
--- NOTE | 2017-06-30 11:54 | CP.PCM.PN ---
Subjective - Date & Time of Evaluation Date of Evaluation: 06/30/17 Time of Evaluation: 11:49 - Subjective Subjective: Mr. Huizar was seen and examined at the bedside. He remains alert, oriented x 3. He denies any headache, dizziness, lightheadedness, weakness, nausea, or vomiting. There was no untoward events overnight. Objective - Vital Signs/Intake and Output Vital Signs (last 24 hours): Temp Pulse Resp BP Pulse Ox 97.2 F L 65 20 111/58 L 97 06/30/17 07:47 06/30/17 07:47 06/30/17 07:47 06/30/17 07:47 06/30/17 07:47 - Medications Medications: Current Medications Acetaminophen (Tylenol 325mg Tab) 650 mg PO Q4 PRN PRN Reason: Fever >100.4 F Aspirin (Ecotrin) 81 mg PO DAILY [facility] Last Admin: 06/30/17 08:56 Dose: 81 mg Carbamazepine (Tegretol-Xr) 300 mg PO Q12 [facility] Last Admin: 06/30/17 08:56 Dose: 300 mg Dexamethasone (Decadron) 4 mg PO Q12 [facility] Escitalopram Oxalate (Lexapro) 10 mg PO DAILY [facility] Last Admin: 06/30/17 08:55 Dose: 10 mg Lactulose (Enulose) 20 gm PO DAILY PRN PRN Reason: Constipation Levothyroxine Sodium (Synthroid) 75 mcg PO DAILY@0630 [facility] Last Admin: 06/30/17 07:06 Dose: 75 mcg Meclizine HCl (Antivert) 25 mg PO Q8 PRN PRN Reason: Dizziness Pantoprazole Sodium (Protonix Ec Tab) 40 mg PO 0630 [facility] Last Admin: 06/30/17 07:06 Dose: 40 mg Zolpidem Tartrate (Ambien) 5 mg PO HS PRN PRN Reason: Insomnia - Labs Labs: 06/28/17 05:15 - Constitutional Appears: Well - Head Exam Head Exam: ATRAUMATIC, NORMAL INSPECTION, NORMOCEPHALIC - Neurological Exam Neurological Exam: Alert, Awake, CN II-XII Intact, Oriented x3 Neuro motor strength exam: Left Upper Extremity: 5, Right Upper Extremity: 5, Left Lower Extremity: 5, Right Lower Extremity: 5 Additional comments: He is able to cooperative to all his therapy, follows commands and responds appropriately. There is no left arm drift noted and no weakness in the left leg. Assessment and Plan (1) Gait instability Assessment & Plan: Case discussed with Dr. Jerez, will decrease decadron 4 mg PO every 12 hours, continue all current medical, physical, occupational, and speech therapies. Status: Acute
--- NOTE | 2017-06-30 14:11 | PN ---
PHYSIATRY PROGRESS NOTE DATE: 06/30/2017 SUBJECTIVE: The patient is feeling fine. No acute complaints at present. PHYSICAL EXAMINATION: VITAL SIGNS: Stable. NECK: Supple. CHEST: Symmetrical. HEART: Sounds S1 and S2. ABDOMEN: Benign. EXTREMITIES: No clubbing, cyanosis, or edema. IMPRESSION: Gait difficulty, deconditioning, right occipital brain mass, glioblastoma, seizures, hemianopsia. PLAN: Continue to work on balance and gait, coordination, strengthening, physical and occupational therapy, range of motion, and gait training. Kashmir Carrasco MD
--- NOTE | 2017-06-30 14:40 | CP.PCM.PN ---
Subjective - Date & Time of Evaluation Date of Evaluation: 06/30/17 Time of Evaluation: 11:00 - Subjective Subjective: F/U Gait Instability. no A/D, increasing strength in LLE. Objective - Vital Signs/Intake and Output Vital Signs (last 24 hours): Temp Pulse Resp BP Pulse Ox 97.2 F L 65 20 111/58 L 97 06/30/17 07:47 06/30/17 07:47 06/30/17 07:47 06/30/17 07:47 06/30/17 07:47 - Medications Medications: Current Medications Acetaminophen (Tylenol 325mg Tab) 650 mg PO Q4 PRN PRN Reason: Fever >100.4 F Aspirin (Ecotrin) 81 mg PO DAILY [facility] Last Admin: 06/30/17 08:56 Dose: 81 mg Carbamazepine (Tegretol-Xr) 300 mg PO Q12 [facility] Last Admin: 06/30/17 08:56 Dose: 300 mg Dexamethasone (Decadron) 4 mg PO Q12 [facility] Last Admin: 06/30/17 13:28 Dose: 4 mg Escitalopram Oxalate (Lexapro) 10 mg PO DAILY [facility] Last Admin: 06/30/17 08:55 Dose: 10 mg Lactulose (Enulose) 20 gm PO DAILY PRN PRN Reason: Constipation Levothyroxine Sodium (Synthroid) 75 mcg PO DAILY@0630 [facility] Last Admin: 06/30/17 07:06 Dose: 75 mcg Meclizine HCl (Antivert) 25 mg PO Q8 PRN PRN Reason: Dizziness Pantoprazole Sodium (Protonix Ec Tab) 40 mg PO 0630 [facility] Last Admin: 06/30/17 07:06 Dose: 40 mg Zolpidem Tartrate (Ambien) 5 mg PO HS PRN PRN Reason: Insomnia - Labs Labs: 06/28/17 05:15 - Constitutional Appears: No Acute Distress, Chronically Ill - Head Exam Additional comments: R Craniotomy - Eye Exam Eye Exam: PERRL - ENT Exam ENT Exam: Normal Exam - Neck Exam Neck Exam: Normal Inspection - Respiratory Exam Respiratory Exam: Clear to Ausculation Bilateral - Cardiovascular Exam Cardiovascular Exam: REGULAR RHYTHM - GI/Abdominal Exam GI & Abdominal Exam: Soft, Normal Bowel Sounds - Extremities Exam Extremities Exam: Normal Inspection - Back Exam Back Exam: NORMAL INSPECTION - Neurological Exam Neurological Exam: Alert, Oriented x3 Additional comments: Speech clear , able to follows commands, no L arm drift,able to do L finger nose , hand incident analyst equal , improved fine motor cordination L hand , L Hemianopsia, weakness LUE , LLE improved - Psychiatric Exam Psychiatric exam: Anxious, Depressed - Skin Skin Exam: Warm Assessment and Plan (1) Gait instability Status: Acute (2) Head injury Status: Acute (3) Hx of fall Status: Chronic (4) Hx of seizure disorder Status: Chronic (5) Multiple thyroid nodules Status: Chronic (6) Anxiety Status: Acute (7) Depression Status: Acute - Assessment and Plan (Free Text) Plan: Pt doing well with PT, OT, Continue current medications and continue PT and OT
--- NOTE | 2017-06-30 16:13 | PN ---
ENDOCRINOLOGY FOLLOWUP NOTE LOCATION: Room #627. SUBJECTIVE: This is a 46-year-old male with known history of recent hypothyroidism, presenting here with dizziness, lightheadedness, and left-sided weakness, and currently being followed closely by Neurology for ongoing workup and management as noted. He has a significant history of glioblastoma and had a resection about 20 years ago as noted. He is currently on oral steroid therapy after receiving a bout of IV steroids as noted. LABORATORY DATA: His latest chemistries showed a BUN of 18, sodium 137, potassium 4.6, chloride 100, CO2 25, glucose 101, and creatinine 0.6. His cortisol levels have ranged from 3.2 at a random fasting level with a repeat level post stimulation of 11.3 mcg/dL which is actually a blunted response as noted. His thyroid studies showed a T4 of 5.50 with a TSH of 5.18 with thyroglobulin level of 37.9. He also has an underlying small multinodular goiter with bilateral nodules and a dominant solid nodule in the right lobe as noted. PLAN: We will obtain serial chemistries and supplement accordingly as needed. Moreover, we will also continue the levothyroxine given as 75 mcg once daily as ordered. We will follow and advise accordingly. Gaby Pope MD
[2017-07-01] MEDS: Pantoprazole 40 mg EC Tab PO SCH (06:16)
[2017-07-01] MEDS: Levothyroxine 75 MCG TAB PO SCH (06:17)
--- NOTE | 2017-07-01 14:42 | CP.PCM.PN ---
Objective - Vital Signs/Intake and Output Vital Signs (last 24 hours): Temp Pulse Resp BP Pulse Ox 98.1 F 52 L 22 107/68 98 07/01/17 08:41 07/01/17 08:41 07/01/17 08:41 07/01/17 08:41 07/01/17 08:41 - Medications Medications: Current Medications Acetaminophen (Tylenol 325mg Tab) 650 mg PO Q4 PRN PRN Reason: Fever >100.4 F Aspirin (Ecotrin) 81 mg PO DAILY [facility] Last Admin: 07/01/17 08:29 Dose: 81 mg Carbamazepine (Tegretol-Xr) 300 mg PO Q12 [facility] Last Admin: 07/01/17 08:29 Dose: 300 mg Dexamethasone (Decadron) 4 mg PO Q12 [facility] Last Admin: 07/01/17 08:29 Dose: 4 mg Escitalopram Oxalate (Lexapro) 10 mg PO DAILY [facility] Last Admin: 07/01/17 08:28 Dose: 10 mg Lactulose (Enulose) 20 gm PO DAILY PRN PRN Reason: Constipation Levothyroxine Sodium (Synthroid) 75 mcg PO DAILY@0630 [facility] Last Admin: 07/01/17 06:17 Dose: 75 mcg Meclizine HCl (Antivert) 25 mg PO Q8 PRN PRN Reason: Dizziness Pantoprazole Sodium (Protonix Ec Tab) 40 mg PO 0630 [facility] Last Admin: 07/01/17 06:16 Dose: 40 mg Zolpidem Tartrate (Ambien) 5 mg PO HS PRN PRN Reason: Insomnia - Labs Labs: 06/28/17 05:15 Assessment and Plan (1) Gait instability Status: Acute (2) Head injury Status: Acute (3) Hx of fall Status: Chronic (4) Hx of seizure disorder Status: Chronic (5) Multiple thyroid nodules Status: Chronic (6) Anxiety Status: Acute (7) Depression Status: Acute
--- NOTE | 2017-07-01 16:33 | PN ---
ENDO FOLLOWUP NOTE DATE: LOCATION: Room 627. SUBJECTIVE: This is a 46-year-old male presenting here with generalized body weakness and supervening dizziness and lightheadedness and has been closely evaluated by Neurology and is also being followed closely for metabolic management. He has still ongoing Decadron given as 4 mg IV every 12 hours as ordered. His ACTH stimulation test showed a blunted response indicative of subclinical hypoadrenalism or adrenal insufficiency as noted. Moreover, his serial thyroid studies showed the presence of subclinical hypothyroidism with an underlying multinodular goiter and a concomitant dominant right solid nodule as noted. He has been started on levothyroxine replacement therapy at 75 mcg daily, which he is tolerating fairly well at this time. His latest chemistry showed a BUN of 18, sodium 137, potassium 4.6, chloride 100, CO2 of 25, glucose 101, and creatinine 0.6. His TSH level is 5.18 with a T4 of 5.50. His cortisol level is pending at this time. So, for now, we will continue the levothyroxine given as 75 mcg daily and repeat the thyroid studies and serum cortisol level and adjust his dose regimen accordingly. We will also obtain serial chemistries and supplement accordingly as needed. We will follow and advise accordingly. Gaby Pope MD
[2017-07-02] MEDS: Levothyroxine 75 MCG TAB PO SCH (05:56)
[2017-07-02] MEDS: Pantoprazole 40 mg EC Tab PO SCH (05:56)
[2017-07-02 08:46] LABS: ALB/GLOB RATIO 1.5 (1.0-2.1); ALKALINE PHOSPHATASE 72 U/L (38-126); ALT/SGPT 33 U/L (21-72); AST/SGOT 23 U/L (17-59); BILIRUBIN,TOTAL 0.6 mg/dl (0.2-1.3); BLOOD UREA NITROGEN 16 mg/dl (9-20); CALCIUM 10.1 mg/dL (8.4-10.2); CARBON DIOXIDE 31 mmol/L (22-30); CHLORIDE 95 mmol/L (98-107); GFR AFRICAN-AMERICAN > 60; GLUCOSE,RANDOM 100 mg/dL (75-110); POTASSIUM 4.4 MMOL/L (3.6-5.0); SODIUM 138 mmol/l (132-148); TOTAL PROTEIN 7.6 G/DL (6.3-8.2)
[2017-07-02 09:04] LABS: T4 6.45 ug/dl (5.5-11.0)
[2017-07-02 09:16] LABS: THYROID STIMULATING HORMONE 2.91 mIU/ML (0.46-4.68)
--- NOTE | 2017-07-02 12:55 | CP.PCM.PN ---
Subjective - Date & Time of Evaluation Date of Evaluation: 07/02/17 Time of Evaluation: 12:50 - Subjective Subjective: F/U Gait Instability Pt feels has increased strength in the LLE and much better coordination in the LUE Objective - Vital Signs/Intake and Output Vital Signs (last 24 hours): Temp Pulse Resp BP Pulse Ox 97.8 F 58 L 95 H 118/73 95 07/02/17 09:30 07/02/17 09:30 07/02/17 09:30 07/02/17 09:30 07/02/17 09:30 - Medications Medications: Current Medications Acetaminophen (Tylenol 325mg Tab) 650 mg PO Q4 PRN PRN Reason: Fever >100.4 F Aspirin (Ecotrin) 81 mg PO DAILY [facility] Last Admin: 07/02/17 08:33 Dose: 81 mg Carbamazepine (Tegretol-Xr) 300 mg PO Q12 [facility] Last Admin: 07/02/17 08:32 Dose: 300 mg Dexamethasone (Decadron) 4 mg PO Q12 [facility] Last Admin: 07/02/17 08:33 Dose: 4 mg Escitalopram Oxalate (Lexapro) 10 mg PO DAILY [facility] Last Admin: 07/02/17 08:33 Dose: 10 mg Lactulose (Enulose) 20 gm PO DAILY PRN PRN Reason: Constipation Levothyroxine Sodium (Synthroid) 75 mcg PO DAILY@0630 [facility] Last Admin: 07/02/17 05:56 Dose: 75 mcg Meclizine HCl (Antivert) 25 mg PO Q8 PRN PRN Reason: Dizziness Pantoprazole Sodium (Protonix Ec Tab) 40 mg PO 0630 [facility] Last Admin: 07/02/17 05:56 Dose: 40 mg Zolpidem Tartrate (Ambien) 5 mg PO HS PRN PRN Reason: Insomnia - Labs Labs: 07/02/17 08:00 - Constitutional Appears: No Acute Distress, Chronically Ill - Head Exam Additional comments: R Craniotomy. 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 - Psychiatric Exam Psychiatric exam: Anxious, Depressed - Skin Skin Exam: Warm Assessment and Plan (1) Gait instability Status: Acute (2) Head injury Status: Acute (3) Hx of fall Status: Chronic (4) Hx of seizure disorder Status: Chronic (5) Multiple thyroid nodules Status: Chronic (6) Anxiety Status: Acute (7) Depression Status: Acute - Assessment and Plan (Free Text) Plan: Continue current medications, PT,OT.
--- NOTE | 2017-07-02 15:37 | PN ---
ENDO FOLLOWUP NOTE LOCATION: 627. SUBJECTIVE: This is a 46-year-old male with ongoing acute rehabilitation therapy on the background of left-sided weakness and debility as noted, and is also being followed closely for metabolic management. He also has subclinical hypothyroidism, currently tolerating the levothyroxine replacement therapy as given. His latest chemistry showed a BUN of 16, sodium 138, potassium 4.4, chloride 95, CO2 of 31, glucose 100, and creatinine 0.9. So at this time, we will continue the levothyroxine given at 75 mcg daily as order . The repeat TSH is 2.91 with a thyroglobulin level of 37.9. So, at this time, we will continue the dual oral hormonal replacement therapy with hydrocortisone given as 20 mg b.i.d. and levothyroxine given as 100 mcg daily as ordered. We will obtain serial chemistries and supplement accordingly as needed. We will follow. Gaby Pope MD
[2017-07-03] MEDS: Levothyroxine 75 MCG TAB PO SCH (06:18)
[2017-07-03] MEDS: Pantoprazole 40 mg EC Tab PO SCH (06:18)
--- NOTE | 2017-07-03 11:27 | CP.PCM.PN ---
Subjective - Date & Time of Evaluation Date of Evaluation: 07/03/17 Time of Evaluation: 11:25 - Subjective Subjective: Mr. Huizar was seen and examined at the bedside. He is alert, oriented in all spheres. He denies any headache, lightheadedness, dizziness, or weakness. There was no untoward events overnight. Objective - Vital Signs/Intake and Output Vital Signs (last 24 hours): Temp Pulse Resp BP Pulse Ox 97.2 F L 66 18 125/74 97 07/03/17 07:49 07/03/17 07:49 07/03/17 07:49 07/03/17 07:49 07/03/17 07:49 - Medications Medications: Current Medications Acetaminophen (Tylenol 325mg Tab) 650 mg PO Q4 PRN PRN Reason: Fever >100.4 F Aspirin (Ecotrin) 81 mg PO DAILY [facility] Last Admin: 07/03/17 08:20 Dose: 81 mg Carbamazepine (Tegretol-Xr) 300 mg PO Q12 [facility] Last Admin: 07/03/17 08:20 Dose: 300 mg Dexamethasone (Decadron) 4 mg PO Q12 [facility] Last Admin: 07/03/17 08:20 Dose: 4 mg Escitalopram Oxalate (Lexapro) 10 mg PO DAILY [facility] Last Admin: 07/03/17 08:20 Dose: 10 mg Hydrocortisone (Cortef) 20 mg PO BID [facility] Last Admin: 07/03/17 08:20 Dose: 20 mg Lactulose (Enulose) 20 gm PO DAILY PRN PRN Reason: Constipation Levothyroxine Sodium (Synthroid) 75 mcg PO DAILY@0630 [facility] Last Admin: 07/03/17 06:18 Dose: 75 mcg Meclizine HCl (Antivert) 25 mg PO Q8 PRN PRN Reason: Dizziness Pantoprazole Sodium (Protonix Ec Tab) 40 mg PO 0630 [facility] Last Admin: 07/03/17 06:18 Dose: 40 mg Zolpidem Tartrate (Ambien) 5 mg PO HS PRN PRN Reason: Insomnia - Labs Labs: 07/02/17 08:00 - Constitutional Appears: Well - Head Exam Head Exam: ATRAUMATIC, NORMAL INSPECTION, NORMOCEPHALIC - Neurological Exam Neurological Exam: Alert, Awake, CN II-XII Intact, Oriented x3 Neuro motor strength exam: Left Upper Extremity: 4, Right Upper Extremity: 5, Left Lower Extremity: 4, Right Lower Extremity: 5 Additional comments: He is able to follow commands, no left arm drift. Neurological improved from previous examination. Assessment and Plan (1) Gait instability Assessment & Plan: Case discussed with Dr. Jerez, continue all current medical, physical, occupational, and speech therapies.There is no new recommendation from neurology. Status: Acute
--- NOTE | 2017-07-03 12:08 | CP.PCM.PN ---
Objective - Vital Signs/Intake and Output Vital Signs (last 24 hours): Temp Pulse Resp BP Pulse Ox 97.2 F L 66 18 125/74 97 07/03/17 07:49 07/03/17 07:49 07/03/17 07:49 07/03/17 07:49 07/03/17 07:49 - Medications Medications: Current Medications Acetaminophen (Tylenol 325mg Tab) 650 mg PO Q4 PRN PRN Reason: Fever >100.4 F Aspirin (Ecotrin) 81 mg PO DAILY [facility] Last Admin: 07/03/17 08:20 Dose: 81 mg Carbamazepine (Tegretol-Xr) 300 mg PO Q12 [facility] Last Admin: 07/03/17 08:20 Dose: 300 mg Dexamethasone (Decadron) 4 mg PO Q12 [facility] Last Admin: 07/03/17 08:20 Dose: 4 mg Escitalopram Oxalate (Lexapro) 10 mg PO DAILY [facility] Last Admin: 07/03/17 08:20 Dose: 10 mg Hydrocortisone (Cortef) 20 mg PO BID [facility] Last Admin: 07/03/17 08:20 Dose: 20 mg Lactulose (Enulose) 20 gm PO DAILY PRN PRN Reason: Constipation Levothyroxine Sodium (Synthroid) 75 mcg PO DAILY@0630 [facility] Last Admin: 07/03/17 06:18 Dose: 75 mcg Meclizine HCl (Antivert) 25 mg PO Q8 PRN PRN Reason: Dizziness Pantoprazole Sodium (Protonix Ec Tab) 40 mg PO 0630 [facility] Last Admin: 07/03/17 06:18 Dose: 40 mg Zolpidem Tartrate (Ambien) 5 mg PO HS PRN PRN Reason: Insomnia - Labs Labs: 07/02/17 08:00 Assessment and Plan (1) Gait instability Status: Acute (2) Head injury Status: Acute (3) Hx of fall Status: Chronic (4) Hx of seizure disorder Status: Chronic (5) Multiple thyroid nodules Status: Chronic (6) Anxiety Status: Acute (7) Depression Status: Acute
--- NOTE | 2017-07-03 14:25 | CP.PCM.PN ---
Subjective - Date & Time of Evaluation Date of Evaluation: 07/03/17 Time of Evaluation: 13:00 - Subjective Subjective: no complaints of pain Objective - Vital Signs/Intake and Output Vital Signs (last 24 hours): Temp Pulse Resp BP Pulse Ox 97.2 F L 66 18 125/74 97 07/03/17 07:49 07/03/17 07:49 07/03/17 07:49 07/03/17 07:49 07/03/17 07:49 - Medications Medications: Current Medications Acetaminophen (Tylenol 325mg Tab) 650 mg PO Q4 PRN PRN Reason: Fever >100.4 F Aspirin (Ecotrin) 81 mg PO DAILY [facility] Last Admin: 07/03/17 08:20 Dose: 81 mg Carbamazepine (Tegretol-Xr) 300 mg PO Q12 [facility] Last Admin: 07/03/17 08:20 Dose: 300 mg Dexamethasone (Decadron) 4 mg PO Q12 [facility] Last Admin: 07/03/17 08:20 Dose: 4 mg Escitalopram Oxalate (Lexapro) 10 mg PO DAILY [facility] Last Admin: 07/03/17 08:20 Dose: 10 mg Hydrocortisone (Cortef) 20 mg PO BID [facility] Last Admin: 07/03/17 08:20 Dose: 20 mg Lactulose (Enulose) 20 gm PO DAILY PRN PRN Reason: Constipation Levothyroxine Sodium (Synthroid) 75 mcg PO DAILY@0630 [facility] Last Admin: 07/03/17 06:18 Dose: 75 mcg Meclizine HCl (Antivert) 25 mg PO Q8 PRN PRN Reason: Dizziness Pantoprazole Sodium (Protonix Ec Tab) 40 mg PO 0630 [facility] Last Admin: 07/03/17 06:18 Dose: 40 mg Zolpidem Tartrate (Ambien) 5 mg PO HS PRN PRN Reason: Insomnia - Labs Labs: 07/02/17 08:00 - Head Exam Head Exam: ATRAUMATIC, NORMAL INSPECTION, NORMOCEPHALIC - Eye Exam Eye Exam: EOMI, Normal appearance, PERRL Pupil Exam: NORMAL ACCOMODATION - ENT Exam ENT Exam: Mucous Membranes Moist, Normal Exam - Neck Exam Neck Exam: Normal Inspection - Respiratory Exam Respiratory Exam: NORMAL BREATHING PATTERN - Cardiovascular Exam Cardiovascular Exam: REGULAR RHYTHM - GI/Abdominal Exam GI & Abdominal Exam: Normal Bowel Sounds - Rectal Exam Rectal Exam: NORMAL INSPECTION - Exam External exam: NORMAL EXTERNAL EXAM - Extremities Exam Extremities Exam: Normal Capillary Refill, Normal Inspection - Back Exam Back Exam: NORMAL INSPECTION - Neurological Exam Neurological Exam: Alert, Awake Neuro motor strength exam: Left Upper Extremity: 3, Right Upper Extremity: 4, Left Lower Extremity: 3, Right Lower Extremity: 4 Additional comments: problems with balance and coordination - Psychiatric Exam Psychiatric exam: Normal Affect, Normal Mood - Skin Skin Exam: Dry, Intact Assessment and Plan (1) Gait instability Assessment & Plan: plan for physical, occupational, rec therapy monitor balance and coordination Status: Acute (2) Head injury Status: Acute (3) Hx of fall Status: Chronic (4) Hx of seizure disorder Status: Chronic (5) Multiple thyroid nodules Status: Chronic
--- NOTE | 2017-07-03 17:12 | PN ---
ENDOCRINOLOGY FOLLOWUP NOTE DATE: 07/04/2017 LOCATION: Room 627. SUBJECTIVE: This is a 46-year-old male with recent overt hypoadrenalism despite ongoing IV steroid therapy as given. His latest serum cortisol was reported as 0.7 mcg/dL. As noted, the latest chemistry showed a BUN of 16, sodium 138, potassium 4.4, chloride 95, CO2 of 31, glucose 100, and creatinine 0.9. His thyroid study showed a T4 of 6.45 with a TSH of 2.91. So, at this time, we will continue the levothyroxine given as 75 mcg once daily as ordered. We will also continue the IV steroids given as Decadron at 4 mg every 12 hours as ordered. Moreover, we will continue the oral hydrocortisone replacement as ordered with a dose of 20 mg p.o. b.i.d. after meals as ordered. We will also continue the levothyroxine given as 75 mcg once daily as given. We will obtain serial chemistries and supplement accordingly as needed. We will follow. Gaby Pope MD
[2017-07-04] MEDS: Levothyroxine 75 MCG TAB PO SCH (06:25)
[2017-07-04] MEDS: Pantoprazole 40 mg EC Tab PO SCH (06:25)
--- NOTE | 2017-07-04 11:35 | CP.PCM.PN ---
Subjective - Date & Time of Evaluation Date of Evaluation: 07/04/17 Time of Evaluation: 11:32 - Subjective Subjective: Mr. Huizar was seen and examined at the bedside. He denies any headache, dizziness, lightheadedness, nausea, or vomiting. Had a special family meeting with the patient and sister for plans for discharge. The community director also updated the sister the patient's progress.There was no untoward events. Objective - Vital Signs/Intake and Output Vital Signs (last 24 hours): Temp Pulse Resp BP Pulse Ox 97.7 F 80 20 119/74 100 07/04/17 08:24 07/04/17 08:24 07/04/17 08:24 07/04/17 08:24 07/04/17 08:24 - Medications Medications: Current Medications Acetaminophen (Tylenol 325mg Tab) 650 mg PO Q4 PRN PRN Reason: Fever >100.4 F Aspirin (Ecotrin) 81 mg PO DAILY [facility] Last Admin: 07/04/17 08:40 Dose: 81 mg Carbamazepine (Tegretol-Xr) 300 mg PO Q12 [facility] Last Admin: 07/04/17 08:41 Dose: 300 mg Dexamethasone (Decadron) 4 mg PO Q12 [facility] Last Admin: 07/04/17 08:40 Dose: 4 mg Escitalopram Oxalate (Lexapro) 10 mg PO DAILY [facility] Last Admin: 07/04/17 08:41 Dose: 10 mg Hydrocortisone (Cortef) 20 mg PO BID [facility] Last Admin: 07/04/17 08:40 Dose: 20 mg Lactulose (Enulose) 20 gm PO DAILY PRN PRN Reason: Constipation Levothyroxine Sodium (Synthroid) 75 mcg PO DAILY@0630 [facility] Last Admin: 07/04/17 06:25 Dose: 75 mcg Meclizine HCl (Antivert) 25 mg PO Q8 PRN PRN Reason: Dizziness Pantoprazole Sodium (Protonix Ec Tab) 40 mg PO 0630 [facility] Last Admin: 07/04/17 06:25 Dose: 40 mg Zolpidem Tartrate (Ambien) 5 mg PO HS PRN PRN Reason: Insomnia - Labs Labs: 07/02/17 08:00 - Constitutional Appears: Well - Neurological Exam Neurological Exam: Alert, Awake, CN II-XII Intact, Oriented x3 Neuro motor strength exam: Left Upper Extremity: 4, Right Upper Extremity: 5, Left Lower Extremity: 4, Right Lower Extremity: 5 Additional comments: He follow commands, sensation remains intact. Assessment and Plan (1) Gait instability Assessment & Plan: Case discussed with Dr. Jerez, continue current medical, physical, occupational , and speech therapies. Status: Acute
--- NOTE | 2017-07-04 18:57 | PN ---
DATE: ENDOCRINOLOGY FOLLOWUP NOTE LOCATION: Room #627. SUBJECTIVE: This is a 46-year-old male with recent evaluation of subclinical hypothyroidism, currently tolerating very well the levothyroxine replacement therapy as given. Moreover, he also suffered hypoadrenalism or adrenal insufficiency, currently undergoing IV steroid therapy as given with Decadron given as 4 mg every 12 hours as ordered. His glycemic levels are fluctuating but much improved at this time and the latest chemistry showed a BUN of 16, sodium 138, potassium 4.4, chloride 95, CO2 of 31, glucose 100, and creatinine 0.9. The latest serum cortisol level is 0.7 with a TSH of 2.91. So, at this time, we will continue to modify oral steroid therapy and keep him on the hydrocortisone given as 20 mg p.o. b.i.d. as ordered. His ongoing Depacon infusion was given. We will also continue the levothyroxine given as 75 mcg daily as ordered. We will titrate incrementally as indicated to optimize metabolic control. We will follow and advise accordingly. Gaby Pope MD
[2017-07-05] MEDS: Pantoprazole 40 mg EC Tab PO SCH (07:05)
[2017-07-05] MEDS: Levothyroxine 75 MCG TAB PO SCH (07:06)
--- NOTE | 2017-07-05 09:25 | CP.PCM.PN ---
Subjective - Date & Time of Evaluation Date of Evaluation: 07/05/17 Time of Evaluation: 09:21 - Subjective Subjective: Mr. Huizar was seen and examined at the bedside. He responds to question appropriately.He denies any headache, dizziness, lightheadedness, nausea, or vomiting. There is no untoward events overnight. Objective - Vital Signs/Intake and Output Vital Signs (last 24 hours): Temp Pulse Resp BP Pulse Ox 97.5 F L 83 20 122/75 100 07/05/17 09:10 07/05/17 09:10 07/05/17 09:10 07/05/17 09:10 07/05/17 09:10 - Medications Medications: Current Medications Acetaminophen (Tylenol 325mg Tab) 650 mg PO Q4 PRN PRN Reason: Fever >100.4 F Aspirin (Ecotrin) 81 mg PO DAILY [facility] Last Admin: 07/05/17 08:36 Dose: 81 mg Carbamazepine (Tegretol-Xr) 300 mg PO Q12 [facility] Last Admin: 07/05/17 08:36 Dose: 300 mg Dexamethasone (Decadron) 4 mg PO Q12 [facility] Last Admin: 07/05/17 08:36 Dose: 4 mg Escitalopram Oxalate (Lexapro) 10 mg PO DAILY [facility] Last Admin: 07/05/17 08:36 Dose: 10 mg Hydrocortisone (Cortef) 20 mg PO BID [facility] Last Admin: 07/05/17 08:37 Dose: 20 mg Lactulose (Enulose) 20 gm PO DAILY PRN PRN Reason: Constipation Levothyroxine Sodium (Synthroid) 75 mcg PO DAILY@0630 [facility] Last Admin: 07/05/17 07:06 Dose: 75 mcg Meclizine HCl (Antivert) 25 mg PO Q8 PRN PRN Reason: Dizziness Pantoprazole Sodium (Protonix Ec Tab) 40 mg PO 0630 [facility] Last Admin: 07/05/17 07:05 Dose: 40 mg Zolpidem Tartrate (Ambien) 5 mg PO HS PRN PRN Reason: Insomnia - Labs Labs: 07/02/17 08:00 - Constitutional Appears: Well - Head Exam Head Exam: ATRAUMATIC, NORMAL INSPECTION, NORMOCEPHALIC - Neurological Exam Neurological Exam: Alert, Awake, CN II-XII Intact, Oriented x3 Neuro motor strength exam: Left Upper Extremity: 4, Right Upper Extremity: 5, Left Lower Extremity: 4, Right Lower Extremity: 5 Additional comments: He follow commands. There is no left arm drift, but with left arm still weaker than the right. Sensation remains intact. Assessment and Plan (1) Gait instability Assessment & Plan: Case discussed with Dr. Jerez, continue all current medical, physical, occupational, and speech therapies. Will decrease decadron dose rakesh. Status: Acute
--- NOTE | 2017-07-05 12:18 | PSY.TMCNF ---
Nursing - Vital Signs Vital Signs (Last 8 hours): Vital Signs 07/05/17 09:10 Temperature 97.5 F L Pulse Rate 83 Respiratory 20 Rate Blood Pressure 122/75 O2 Sat by Pulse 100 Oximetry Pain: 0 - Medications/Other Issues Comment: Pt at low nutritional risk. no goals. Follow-up due on 07/13/2017 - Bladder Management Bladder Pattern: Normal Voiding Method: Toilet, Urinal - Bowel Management Bowel Pattern: Normal - Goals/Time Frame Comments: Pt was seen following PT session and agreeable to participate in session. Pt was able to identify his leisure interests such as watching sports, spending time with friends, and working. Pt presented with decrease insight of deficits and required verbal cues for safety insight. Pt then participated in card task and required mod verbal cues for carryover of task rules and turn taking. Physical Therapy - Bed Mobility Bed Mobility: Verbal Cues, Contact Guard - Transfers Wheelchair to Mat: Verbal Cues, Contact Guard Sit to Stand: Verbal Cues, Contact Guard - Ambulation Level of Assistance: Contact Guard Distance (ft.): 150 Assistive Devices: Single point cane - Stair Negotiation Stairs: Level of Assistance: Verbal Cues, Contact Guard, Minimal Assistance Handrails: Right Stairs: Assistive Devices: Right Handrail - Standing Balance Static Stand: Contact Guard Assist Dynamic Stand: Minimal Assistance - Pain Pain (assessed during therapy session): 0 - Insight/Carryover Insight/Carryover: Fair - Patient/Family Education Comment: role Of OT, fall prevention, DME, safety, - Assessment/Plan Assessment: Pt demonstrating increased independence with transfers during today' s session however continues to have poor safety awareness, pt repeats again that he isn't going to fall, however therapist reiterates the reason for his admission was a fall and he has reported he has fallen several times. Pt requires continued skilled OT services to maximize independence with ADLs and functional mobility - Goals Timeframe: 7 days Goals: MOD I toileting. MOD I toilet txfer. S bathing. S shower txfer. MOD I UE dressing. MOD I LE dressing - Provider License Number: [id number] Occupational Therapy - Arousal/Attention/Orientation Level of Consciousness: Awake, Alert Patient Orientation: Person, Place, Time, Appropriate to Age, Appropriate to Situation - ADL/IADL Self Feeding: Independent Grooming: Independent Bathing-Upper Extremity: Supervision, Verbal Cues, Set-up Help Bathing-Lower Extremity: Supervision, Verbal Cues, Set-up Help Dressing-Upper Extremity: Supervision Dressing-Lower Extremity: Verbal Cues, Contact Guard - Sitting Balance Static Sitting: Independent without upper extremity support Dynamic Sitting: Reaches across midline, Reaches within base of support - Transfers Wheelchair to Bed Transfers: Supervision, Verbal Cues, Set-up Help Toilet Transfers: Supervision, Verbal Cues, Contact Guard Tub Transfers: Supervision, Verbal Cues, Minimal Assistance - Upper Extremity Status Right Upper Extremity Comment: ROM WFL, generalized weakness Left Upper Extremity Comment: ROM WFL, generalized weakness, impaired fine motor coordination - Pain Pain (assessed during therapy session): 0 - Insight/Carryover Insight/Carryover: Fair - Patient/Family Education Comment: role Of OT, fall prevention, DME, safety, - Assessment/Plan Assessment: Pt demonstrating increased independence with transfers during today' s session however continues to have poor safety awareness, pt repeats again that he isn't going to fall, however therapist reiterates the reason for his admission was a fall and he has reported he has fallen several times. Pt requires continued skilled OT services to maximize independence with ADLs and functional mobility - Goals Timeframe: 7 days Goals: MOD I toileting. MOD I toilet txfer. S bathing. S shower txfer. MOD I UE dressing. MOD I LE dressing - Provider Therapist: Johanna Flores License Number: [id number] Speech Therapy - Consult Information Patient on Program: Yes Medical Diagnosis: debility; h/o glioblastoma with resection/chemo/radiation Treatment Diagnosis: mild cognitive deficits - Assessment Problem Solving Impairment: Mild Memory Impairment: Mild - Plan Assessment: Pt demonstrating increased independence with transfers during today' s session however continues to have poor safety awareness, pt repeats again that he isn't going to fall, however therapist reiterates the reason for his admission was a fall and he has reported he has fallen several times. Pt requires continued skilled OT services to maximize independence with ADLs and functional mobility - Provider Therapist: Benita Espinosa License Number: [id number] Recreational Therapy - Participation Participation: Participates in Individual and/or Group Sessions, Monitors His/ Her Own Leisure Time - Attendance Attendance: 3-5 times per week - Activities Leisure Activities: Television - Socialization Level of Socialization: Initiates/interacts freely with care givers and peer - Diversional Time Diversional Time: television, on the phone, reading - Assessment Assessment/Plan: Pt demonstrating increased independence with transfers during today's session however continues to have poor safety awareness, pt repeats again that he isn't going to fall, however therapist reiterates the reason for his admission was a fall and he has reported he has fallen several times. Pt requires continued skilled OT services to maximize independence with ADLs and functional mobility - Provider Therapist: Kathy Chatman, [employer] #[id number] Nutrition - Current Diet Current Diet/ Supplement/ Feedings: Regular diet - Appetite Percent Meal Consumed: 75-100% - Assessment/Goals/Time Frame Assessment/Goals/Time Frame: Pt at low nutritional risk. no goals. Follow-up due on 07/13/2017 - Provider Provider: Celia Viera RD Case Management - Psychosocial Assessment Support Systems: Patient's sister Daniela [phone] Psychological Interventions/Needs: Patient is alert with inconsistencies in history. Discharge Concerns: Patient with poor safety awareness and impaired insight into impairments. Patient with 2 flights of stairs to negotiate at home. Patient/Family Meeting: CM met with patient and rehab team Intervention/Goal/Outcome:: 1. Goal: Intermittent supervision overall. 2. Plan: Home with VNS and private pay homemaker for IADLs and morning ADLs? 3. DME neds. 4. f/u appts. 5. continued emotional support. 6. continued stay auth, LAD : 07/03 - Discharge Plan Discharge Plan: Home with services - Provider Provider: AYUSH French, [employer] License Number: [id number] Rehabilitation Plan - Treatment Plan Treatment Plan: Physical Therapy, Occupational Therapy, Speech, Dietary, Patient /Family Education - Recommendation Recommendation: Physical Therapy, Occupational Therapy, Speech, Dietary, Patient /Family Education - Discharge Plan Discharge to: Home (18 dc)
--- NOTE | 2017-07-05 12:56 | CP.PCM.PN ---
Subjective - Date & Time of Evaluation Date of Evaluation: 07/05/17 Time of Evaluation: 12:30 - Subjective Subjective: no acute complaints Objective - Vital Signs/Intake and Output Vital Signs (last 24 hours): Temp Pulse Resp BP Pulse Ox 97.5 F L 83 20 122/75 100 07/05/17 09:10 07/05/17 09:10 07/05/17 09:10 07/05/17 09:10 07/05/17 09:10 - Medications Medications: Current Medications Acetaminophen (Tylenol 325mg Tab) 650 mg PO Q4 PRN PRN Reason: Fever >100.4 F Aspirin (Ecotrin) 81 mg PO DAILY [facility] Last Admin: 07/05/17 08:36 Dose: 81 mg Carbamazepine (Tegretol-Xr) 300 mg PO Q12 [facility] Last Admin: 07/05/17 08:36 Dose: 300 mg Dexamethasone (Decadron) 4 mg PO Q12 [facility] Last Admin: 07/05/17 08:36 Dose: 4 mg Escitalopram Oxalate (Lexapro) 10 mg PO DAILY [facility] Last Admin: 07/05/17 08:36 Dose: 10 mg Hydrocortisone (Cortef) 20 mg PO BID [facility] Last Admin: 07/05/17 08:37 Dose: 20 mg Lactulose (Enulose) 20 gm PO DAILY PRN PRN Reason: Constipation Levothyroxine Sodium (Synthroid) 75 mcg PO DAILY@0630 [facility] Last Admin: 07/05/17 07:06 Dose: 75 mcg Meclizine HCl (Antivert) 25 mg PO Q8 PRN PRN Reason: Dizziness Pantoprazole Sodium (Protonix Ec Tab) 40 mg PO 0630 [facility] Last Admin: 07/05/17 07:05 Dose: 40 mg Zolpidem Tartrate (Ambien) 5 mg PO HS PRN PRN Reason: Insomnia - Labs Labs: 07/02/17 08:00 - Head Exam Head Exam: ATRAUMATIC - Eye Exam Eye Exam: EOMI, Normal appearance Pupil Exam: NORMAL ACCOMODATION - ENT Exam ENT Exam: Mucous Membranes Moist, Normal Exam - Neck Exam Neck Exam: Normal Inspection - Respiratory Exam Respiratory Exam: NORMAL BREATHING PATTERN - Cardiovascular Exam Cardiovascular Exam: REGULAR RHYTHM - GI/Abdominal Exam GI & Abdominal Exam: Normal Bowel Sounds - Rectal Exam Rectal Exam: NORMAL INSPECTION - Exam External exam: NORMAL EXTERNAL EXAM - Extremities Exam Extremities Exam: Normal Capillary Refill, Pedal Edema - Back Exam Back Exam: NORMAL INSPECTION - Neurological Exam Neurological Exam: Alert, Awake Neuro motor strength exam: Left Upper Extremity: 3, Right Upper Extremity: 3, Left Lower Extremity: 3, Right Lower Extremity: 3 - Psychiatric Exam Psychiatric exam: Normal Affect, Normal Mood - Skin Skin Exam: Dry, Intact Assessment and Plan (1) Gait instability Status: Acute (2) Head injury Assessment & Plan: jeff post team conferecne discussed Dc planning PT and Ot therapy Status: Acute (3) Hx of fall Status: Chronic (4) Hx of seizure disorder Status: Chronic (5) Multiple thyroid nodules Status: Chronic
--- NOTE | 2017-07-05 19:46 | PN ---
ENDO FOLLOWUP NOTE DATE: LOCATION: Room 626. SUBJECTIVE: This is a 46-year-old male with recent lower extremity weakness, now undergoing acute rehabilitation therapy and is now being followed closely for metabolic management. He also has subclinical hypothyroidism and hypoadrenalism with adrenal insufficiency, currently on IV steroid therapy as noted and given. His latest chemistry shows a BUN of 16, sodium 138, potassium 4.4, chloride 95, CO2 of 31, glucose 100, and creatinine 0.9. His latest serum cortisol level is 0.7 with a TSH of 2.91 and a T4 of 6.45. So, at this time, we will continue the levothyroxine given as 75 mcg daily as ordered. We will continue the hydrocortisone given as 20 mg p.o. b.i.d. orally with ongoing Decadron at 4 mg IV piggyback every 12 hours as ordered. We will obtain serial chemistries and supplement accordingly as needed. We will obtain serial thyroid studies and serum cortisol level and adjust this dose regimen accordingly. We will follow. Gaby Pope MD
[2017-07-06] MEDS: Pantoprazole 40 mg EC Tab PO SCH (06:37)
[2017-07-06] MEDS: Levothyroxine 75 MCG TAB PO SCH (06:37)
--- NOTE | 2017-07-06 09:47 | CP.PCM.PN ---
Subjective - Date & Time of Evaluation Date of Evaluation: 07/06/17 Time of Evaluation: 09:43 - Subjective Subjective: Mr. Huizar was seen and examined during therapy session. He is alert, oriented in all spheres. He denies any headache, dizziness, lightheadedness, blurry vision, nausea, or vomiting. He is very happy and conversant doing his therapy.There was no untoward events overnight. Objective - Vital Signs/Intake and Output Vital Signs (last 24 hours): Temp Pulse Resp BP Pulse Ox 97.8 F 70 20 136/66 99 07/05/17 20:14 07/05/17 20:14 07/05/17 20:14 07/05/17 20:14 07/05/17 20:14 - Medications Medications: Current Medications Acetaminophen (Tylenol 325mg Tab) 650 mg PO Q4 PRN PRN Reason: Fever >100.4 F Aspirin (Ecotrin) 81 mg PO DAILY [facility] Last Admin: 07/06/17 08:36 Dose: 81 mg Carbamazepine (Tegretol-Xr) 300 mg PO Q12 [facility] Last Admin: 07/06/17 08:36 Dose: 300 mg Dexamethasone (Decadron) 4 mg PO DAILY [facility] Escitalopram Oxalate (Lexapro) 10 mg PO DAILY [facility] Last Admin: 07/06/17 08:36 Dose: 10 mg Hydrocortisone (Cortef) 20 mg PO BID [facility] Last Admin: 07/06/17 08:36 Dose: 20 mg Lactulose (Enulose) 20 gm PO DAILY PRN PRN Reason: Constipation Levothyroxine Sodium (Synthroid) 75 mcg PO DAILY@0630 [facility] Last Admin: 07/06/17 06:37 Dose: 75 mcg Meclizine HCl (Antivert) 25 mg PO Q8 PRN PRN Reason: Dizziness Pantoprazole Sodium (Protonix Ec Tab) 40 mg PO 0630 [facility] Last Admin: 07/06/17 06:37 Dose: 40 mg Zolpidem Tartrate (Ambien) 5 mg PO HS PRN PRN Reason: Insomnia - Labs Labs: 07/02/17 08:00 - Constitutional Appears: Well - Head Exam Head Exam: ATRAUMATIC, NORMAL INSPECTION, NORMOCEPHALIC - Neurological Exam Neurological Exam: Alert, Awake, CN II-XII Intact, Oriented x3 Neuro motor strength exam: Left Upper Extremity: 5, Right Upper Extremity: 5, Left Lower Extremity: 5, Right Lower Extremity: 5 Additional comments: He is able to ambulate around the unit using a cane. There is no left arm drift. Sensation remains intact. Assessment and Plan (1) Gait instability Assessment & Plan: Case discussed with Dr. Jerez, will decrease decadron to 4 mg PO daily. Continue all other medical, physical, occupational, and speech therapies. Status: Acute
--- NOTE | 2017-07-06 14:57 | CP.PCM.PN ---
Subjective - Date & Time of Evaluation Date of Evaluation: 07/06/17 Time of Evaluation: 11:00 - Subjective Subjective: F/U Gait instability. control LUE improved, also weakness LLE improved Objective - Vital Signs/Intake and Output Vital Signs (last 24 hours): Temp Pulse Resp BP Pulse Ox 97.7 F 89 20 113/67 97 07/06/17 09:46 07/06/17 09:46 07/06/17 09:46 07/06/17 09:46 07/06/17 09:46 - Medications Medications: Current Medications Acetaminophen (Tylenol 325mg Tab) 650 mg PO Q4 PRN PRN Reason: Fever >100.4 F Aspirin (Ecotrin) 81 mg PO DAILY [facility] Last Admin: 07/06/17 08:36 Dose: 81 mg Carbamazepine (Tegretol-Xr) 300 mg PO Q12 [facility] Last Admin: 07/06/17 08:36 Dose: 300 mg Dexamethasone (Decadron) 4 mg PO DAILY [facility] Escitalopram Oxalate (Lexapro) 10 mg PO DAILY [facility] Last Admin: 07/06/17 08:36 Dose: 10 mg Hydrocortisone (Cortef) 20 mg PO BID [facility] Last Admin: 07/06/17 08:36 Dose: 20 mg Lactulose (Enulose) 20 gm PO DAILY PRN PRN Reason: Constipation Levothyroxine Sodium (Synthroid) 75 mcg PO DAILY@0630 [facility] Last Admin: 07/06/17 06:37 Dose: 75 mcg Meclizine HCl (Antivert) 25 mg PO Q8 PRN PRN Reason: Dizziness Pantoprazole Sodium (Protonix Ec Tab) 40 mg PO 0630 [facility] Last Admin: 07/06/17 06:37 Dose: 40 mg Zolpidem Tartrate (Ambien) 5 mg PO HS PRN PRN Reason: Insomnia - Labs Labs: 07/02/17 08:00 - Constitutional Appears: No Acute Distress, Chronically Ill - Head Exam Additional comments: R Craniotomy - Eye Exam Eye Exam: PERRL - ENT Exam ENT Exam: Normal Exam - Neck Exam Neck Exam: Normal Inspection - Respiratory Exam Respiratory Exam: Clear to Ausculation Bilateral - Cardiovascular Exam Cardiovascular Exam: REGULAR RHYTHM - GI/Abdominal Exam GI & Abdominal Exam: Soft, Normal Bowel Sounds - Extremities Exam Extremities Exam: Normal Inspection - Back Exam Back Exam: NORMAL INSPECTION - Neurological Exam Neurological Exam: Alert, Oriented x3 Additional comments: Speech clear, able to follows commands, no L arm drift, able to do finger nose, 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 - Psychiatric Exam Psychiatric exam: Anxious, Depressed - Skin Skin Exam: Warm Assessment and Plan (1) Gait instability Status: Acute (2) Head injury Status: Acute (3) Hx of fall Status: Chronic (4) Hx of seizure disorder Status: Chronic (5) Multiple thyroid nodules Status: Chronic (6) Hypothyroidism Status: Chronic (7) Anxiety Status: Acute (8) Depression Status: Acute - Assessment and Plan (Free Text) Plan: Continue Synthroid , Tegretol, Lexapro , PT , OT , Decadron was DC,
--- NOTE | 2017-07-06 22:11 | PN ---
ENDO FOLLOWUP NOTE LOCATION: Room 626. SUBJECTIVE: This is a 46-year-old male with recent left-sided weakness and lower extremity weakness with a prior history of a craniotomy for glioblastoma and is also now being followed closely for metabolic management. He also has recent subclinical hypothyroidism and also hypoadrenalism or adrenal insufficiency, currently on oral hormonal replacement as given. His latest chemistries showed a BUN of 16, sodium 138, potassium 4.4, chloride 95, CO2 of 31, glucose 100, and creatinine 0.9. His serum cortisol level is 0.7 with a total T4 of 6.45 and a TSH of 2.91. So, at this time, we will actually continue the levothyroxine therapy as given with a dose of 75 mcg daily as ordered. We will also continue the cortisone given as hydrocortisone 20 mg p.o. b.i.d. after meals as given. We will obtain serial chemistries and supplement accordingly as needed. We will follow with you. Gaby Pope MD
[2017-07-07] MEDS: Pantoprazole 40 mg EC Tab PO SCH (06:09)
[2017-07-07] MEDS: Levothyroxine 75 MCG TAB PO SCH (06:09)
[2017-07-07 08:13] LABS: ALB/GLOB RATIO 1.4 (1.0-2.1); ALKALINE PHOSPHATASE 57 U/L (38-126); ALT/SGPT 34 U/L (21-72); AST/SGOT 20 U/L (17-59); BILIRUBIN,TOTAL 0.4 mg/dl (0.2-1.3); BLOOD UREA NITROGEN 14 mg/dl (9-20); CALCIUM 9.5 mg/dL (8.4-10.2); CARBON DIOXIDE 28 mmol/L (22-30); CHLORIDE 99 mmol/L (98-107); GFR AFRICAN-AMERICAN > 60; GLUCOSE,RANDOM 85 mg/dL (75-110); POTASSIUM 3.8 MMOL/L (3.6-5.0); SODIUM 137 mmol/l (132-148); TOTAL PROTEIN 6.3 G/DL (6.3-8.2)
[2017-07-07 08:18] LABS: T4 6.13 ug/dl (5.5-11.0)
[2017-07-07 08:32] LABS: THYROID STIMULATING HORMONE 3.19 mIU/ML (0.46-4.68)
--- NOTE | 2017-07-07 09:43 | CP.PCM.PN ---
Subjective - Date & Time of Evaluation Date of Evaluation: 07/07/17 Time of Evaluation: 09:40 - Subjective Subjective: Mr. Huizar was seen and examined during his therapy sessions. He reamins alert, oriented x3.He denies any headache, dizziness, weakness, numbness, or any involuntary movements. There was no untoward events overnight. Objective - Vital Signs/Intake and Output Vital Signs (last 24 hours): Temp Pulse Resp BP Pulse Ox 97.9 F 80 20 120/80 100 07/07/17 08:33 07/07/17 08:33 07/07/17 08:33 07/07/17 08:33 07/07/17 08:33 - Medications Medications: Current Medications Acetaminophen (Tylenol 325mg Tab) 650 mg PO Q4 PRN PRN Reason: Fever >100.4 F Aspirin (Ecotrin) 81 mg PO DAILY [facility] Last Admin: 07/07/17 09:16 Dose: 81 mg Carbamazepine (Tegretol-Xr) 300 mg PO Q12 [facility] Last Admin: 07/07/17 09:16 Dose: 300 mg Dexamethasone (Decadron) 4 mg PO DAILY [facility] Last Admin: 07/07/17 09:16 Dose: 4 mg Escitalopram Oxalate (Lexapro) 10 mg PO DAILY [facility] Last Admin: 07/07/17 09:16 Dose: 10 mg Hydrocortisone (Cortef) 20 mg PO BID [facility] Last Admin: 07/07/17 09:16 Dose: 20 mg Lactulose (Enulose) 20 gm PO DAILY PRN PRN Reason: Constipation Levothyroxine Sodium (Synthroid) 75 mcg PO DAILY@0630 [facility] Last Admin: 07/07/17 06:09 Dose: 75 mcg Meclizine HCl (Antivert) 25 mg PO Q8 PRN PRN Reason: Dizziness Pantoprazole Sodium (Protonix Ec Tab) 40 mg PO 0630 [facility] Last Admin: 07/07/17 06:09 Dose: 40 mg Zolpidem Tartrate (Ambien) 5 mg PO HS PRN PRN Reason: Insomnia - Labs Labs: 07/07/17 05:40 - Constitutional Appears: No Acute Distress - Head Exam Head Exam: ATRAUMATIC, NORMAL INSPECTION, NORMOCEPHALIC - Neurological Exam Neurological Exam: Alert, Awake, CN II-XII Intact, Normal Gait, Oriented x3 Neuro motor strength exam: Left Upper Extremity: 5, Right Upper Extremity: 5, Left Lower Extremity: 5, Right Lower Extremity: 5 Additional comments: He is able to ambulate with steady gait with walker and physical therapist. Sensation remains intact. There no more left arm drift. Assessment and Plan (1) Gait instability Assessment & Plan: Case discussed with Dr. Jerez, Continue all current, medical, physical, occupational, and speech therapies. There is no new recommendation from neurology. Status: Acute
--- NOTE | 2017-07-07 15:23 | CP.PCM.PN ---
Subjective - Date & Time of Evaluation Date of Evaluation: 07/07/17 Time of Evaluation: 08:00 - Subjective Subjective: no acute complaints at present Objective - Vital Signs/Intake and Output Vital Signs (last 24 hours): Temp Pulse Resp BP Pulse Ox 97.9 F 80 20 120/80 100 07/07/17 08:33 07/07/17 08:33 07/07/17 08:33 07/07/17 08:33 07/07/17 08:33 - Medications Medications: Current Medications Acetaminophen (Tylenol 325mg Tab) 650 mg PO Q4 PRN PRN Reason: Fever >100.4 F Aspirin (Ecotrin) 81 mg PO DAILY [facility] Last Admin: 07/07/17 09:16 Dose: 81 mg Carbamazepine (Tegretol-Xr) 300 mg PO Q12 [facility] Last Admin: 07/07/17 09:16 Dose: 300 mg Dexamethasone (Decadron) 4 mg PO DAILY [facility] Last Admin: 07/07/17 09:16 Dose: 4 mg Escitalopram Oxalate (Lexapro) 10 mg PO DAILY [facility] Last Admin: 07/07/17 09:16 Dose: 10 mg Hydrocortisone (Cortef) 20 mg PO BID [facility] Last Admin: 07/07/17 09:16 Dose: 20 mg Lactulose (Enulose) 20 gm PO DAILY PRN PRN Reason: Constipation Levothyroxine Sodium (Synthroid) 75 mcg PO DAILY@0630 [facility] Last Admin: 07/07/17 06:09 Dose: 75 mcg Meclizine HCl (Antivert) 25 mg PO Q8 PRN PRN Reason: Dizziness Pantoprazole Sodium (Protonix Ec Tab) 40 mg PO 0630 [facility] Last Admin: 07/07/17 06:09 Dose: 40 mg - Labs Labs: 07/07/17 05:40 - Head Exam Head Exam: ATRAUMATIC, NORMAL INSPECTION, NORMOCEPHALIC - Eye Exam Eye Exam: EOMI, Normal appearance Pupil Exam: PERRL - ENT Exam ENT Exam: Mucous Membranes Moist, Normal Exam - Neck Exam Neck Exam: Normal Inspection - Respiratory Exam Respiratory Exam: NORMAL BREATHING PATTERN - Cardiovascular Exam Cardiovascular Exam: REGULAR RHYTHM - GI/Abdominal Exam GI & Abdominal Exam: Normal Bowel Sounds - Rectal Exam Rectal Exam: NORMAL INSPECTION - Exam External exam: NORMAL EXTERNAL EXAM - Extremities Exam Extremities Exam: Normal Inspection - Back Exam Back Exam: NORMAL INSPECTION - Neurological Exam Neurological Exam: Alert, Awake Neuro motor strength exam: Left Upper Extremity: 3, Right Upper Extremity: 3, Left Lower Extremity: 3, Right Lower Extremity: 3 - Psychiatric Exam Psychiatric exam: Normal Affect - Skin Skin Exam: Normal Color Assessment and Plan (1) Gait instability Status: Acute (2) Head injury Assessment & Plan: plan for Dc home follow up with services after Dc for equipment needs and follow up with opthalmologist and PMD status post PT and OT therapy Status: Acute (3) Hx of fall Status: Chronic (4) Hx of seizure disorder Status: Chronic (5) Multiple thyroid nodules Status: Chronic
--- NOTE | 2017-07-07 17:39 | PN ---
ENDO FOLLOWUP NOTE DATE: LOCATION: Room 626, Rehab Unit. SUBJECTIVE: This is a 46-year-old male with recent lower extremity weakness and undergoing acute rehabilitation therapy and is now being followed closely for metabolic management. He also is being treated at this time for dual hormonal condition; i.e, hypothyroidism and hypoadrenalism as noted. His latest chemistries showed a BUN of 14, sodium 137, potassium 3.8, chloride 99, CO2 of 28, glucose 85, and creatinine 0.8. The latest thyroid study showed a T4 of 6.13 with a TSH of 3.19 and a free T4 of 0.94. The serum cortisol level is still low at 1.8 mcg/dL. So, at this time, we will modify once again his levothyroxine dosing and increase the levothyroxine to 100 mcg once daily in the morning as ordered. We will titrate incremental as indicated to optimize metabolic control. We will also continue the hydrocortisone given as 20 mg p.o. b.i.d. after meals as ordered. He is still currently on Decadron given as 4 mg p.o. once daily as ordered. Once the Decadron is discontinued, then we can titrate higher his hydrocortisone dose regimen accordingly. We will obtain serial thyroid studies and serial serum cortisol levels and adjust his dose regimen accordingly to optimize metabolic control. We will follow. Gaby Pope MD
[2017-07-08] MEDS: Pantoprazole 40 mg EC Tab PO SCH (06:11)
[2017-07-08] MEDS: Levothyroxine 100 MCG TAB PO SCH (06:11)
--- NOTE | 2017-07-08 13:09 | PN ---
ENDO FOLLOWUP NOTE DATE: LOCATION: Room 626. SUBJECTIVE: This is a 46-year-old male with recent debility and lower extremity weakness, undergoing acute rehabilitation therapy and is now being followed closely for metabolic management. He also has recent diagnosis of subclinical hypothyroidism and overt hypoadrenalism or adrenal insufficiency as noted. He is tolerating the hormonal replacement therapy as given. The latest chemistry showed a BUN of 14, sodium 137, potassium 3.8, chloride 99, CO2 of 28, glucose 85, and creatinine 0.8. His latest cortisol level is still low at 1.8 mcg/dL with a total T4 of 6.13 and a TSH of 3.19. So, at this time, we will continue the oral cortisone given as hydrocortisone at 20 mg b.i.d. and levothyroxine given as 100 mcg once daily as ordered. We will obtain serial chemistries and supplement accordingly as needed. We will obtain serial thyroid studies and serial cortisol levels and adjust his dose regimen accordingly. We will follow. Gaby Pope MD
[2017-07-09] MEDS: Levothyroxine 100 MCG TAB PO SCH (06:08)
[2017-07-09] MEDS: Pantoprazole 40 mg EC Tab PO SCH (06:09)
[2017-07-09 06:58] LABS: ALB/GLOB RATIO 1.5 (1.0-2.1); ALKALINE PHOSPHATASE 58 U/L (38-126); ALT/SGPT 34 U/L (21-72); AST/SGOT 18 U/L (17-59); BILIRUBIN,TOTAL 0.4 mg/dl (0.2-1.3); BLOOD UREA NITROGEN 11 mg/dl (9-20); CALCIUM 9.4 mg/dL (8.4-10.2); CARBON DIOXIDE 26 mmol/L (22-30); CHLORIDE 99 mmol/L (98-107); GFR AFRICAN-AMERICAN > 60; GLUCOSE,RANDOM 88 mg/dL (75-110); POTASSIUM 3.7 MMOL/L (3.6-5.0); SODIUM 136 mmol/l (132-148); TOTAL PROTEIN 6.3 G/DL (6.3-8.2)
[2017-07-09 07:09] LABS: T4 6.04 ug/dl (5.5-11.0)
[2017-07-09 07:23] LABS: THYROID STIMULATING HORMONE 1.97 mIU/ML (0.46-4.68)
--- NOTE | 2017-07-09 13:43 | PN ---
ENDO FOLLOWUP NOTE DATE: LOCATION: Room 626, Acute Rehab. 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 He is tolerating the hormonal replacement therapy given as noted. His latest chemistry showed a BUN of 11, sodium 136, potassium 3.7, chloride 99, CO2 of 26, glucose 88, and creatinine 0.7. His latest thyroid study showed a T4 of 6.04 with a free T4 of 0.94 and a TSH of 1.97. His serum cortisol level is pending at this time. He is undergoing acute rehabilitation therapy for lower extremity and left-sided weakness as noted. So, at this time, we will continue the oral steroid replacement therapy given as hydrocortisone at 20 mg p.o. b.i.d. after meals as ordered. We will titrate accordingly to optimize metabolic control. We will also continue the levothyroxine given as 100 mcg daily as ordered. We will titrate incremental as indicated to optimize metabolic control. We will obtain serial chemistries and supplement accordingly as needed. We will follow. Gaby Pope MD
[2017-07-10] MEDS: Levothyroxine 100 MCG TAB PO SCH (05:59)
[2017-07-10] MEDS: Pantoprazole 40 mg EC Tab PO SCH (05:59)
--- NOTE | 2017-07-10 09:09 | CP.PCM.PN ---
Subjective - Date & Time of Evaluation Date of Evaluation: 07/10/17 Time of Evaluation: 09:04 - Subjective Subjective: Mr. Huizar was seen and examined at the bedside. He is alert and denies any headache, lightheadedness, dizziness, nausea, numbness, or weakness. Seen patient walking around his room using cane with stable gait. Per patient, he is for possible discharge on Monday. There was no untoward events overnight. Objective - Vital Signs/Intake and Output Vital Signs (last 24 hours): Temp Pulse Resp BP Pulse Ox 97.7 F 61 20 120/77 99 07/10/17 08:21 07/10/17 08:21 07/10/17 08:21 07/10/17 08:21 07/10/17 08:21 - Medications Medications: Current Medications Acetaminophen (Tylenol 325mg Tab) 650 mg PO Q4 PRN PRN Reason: Fever >100.4 F Aspirin (Ecotrin) 81 mg PO DAILY [facility] Last Admin: 07/10/17 08:28 Dose: 81 mg Carbamazepine (Tegretol-Xr) 300 mg PO Q12 [facility] Last Admin: 07/10/17 08:29 Dose: 300 mg Dexamethasone (Decadron) 4 mg PO DAILY [facility] Last Admin: 07/10/17 08:28 Dose: 4 mg Escitalopram Oxalate (Lexapro) 10 mg PO DAILY [facility] Last Admin: 07/10/17 08:29 Dose: 10 mg Hydrocortisone (Cortef) 20 mg PO BID [facility] Last Admin: 07/10/17 08:28 Dose: 20 mg Lactulose (Enulose) 20 gm PO DAILY PRN PRN Reason: Constipation Levothyroxine Sodium (Synthroid) 100 mcg PO DAILY@0630 [facility] Last Admin: 07/10/17 05:59 Dose: 100 mcg Meclizine HCl (Antivert) 25 mg PO Q8 PRN PRN Reason: Dizziness Pantoprazole Sodium (Protonix Ec Tab) 40 mg PO 0630 [facility] Last Admin: 07/10/17 05:59 Dose: 40 mg - Labs Labs: 07/09/17 05:30 - Constitutional Appears: No Acute Distress - Head Exam Head Exam: ATRAUMATIC, NORMAL INSPECTION, NORMOCEPHALIC - Neurological Exam Neurological Exam: Alert, Awake, CN II-XII Intact, Normal Gait, Oriented x3 Neuro motor strength exam: Left Upper Extremity: 5, Right Upper Extremity: 5, Left Lower Extremity: 5, Right Lower Extremity: 5 Additional comments: Neurological improved from previous examination. He is using the cane no longer wheelchair. Assessment and Plan (1) Gait instability Assessment & Plan: Case discussed with Dr. Jerez, continue all current medical, physical, occupation, and speech therapies. Recommend decadron to decrease from 4 mg to 1 mg PO BID. If patient will be discharge to decrease to 0.5 mg BID PO for 1 more week then discontinue. Status: Acute
--- NOTE | 2017-07-10 14:26 | CP.PCM.PN ---
Subjective - Date & Time of Evaluation Date of Evaluation: 07/10/17 Time of Evaluation: 11:00 - Subjective Subjective: Gait Instability. Pt feels has regain great strength in the LUE and LLE, great improvement with PT , walking with a cane Objective - Vital Signs/Intake and Output Vital Signs (last 24 hours): Temp Pulse Resp BP Pulse Ox 97.7 F 61 20 120/77 99 07/10/17 08:21 07/10/17 08:21 07/10/17 08:21 07/10/17 08:21 07/10/17 08:21 - Medications Medications: Current Medications Acetaminophen (Tylenol 325mg Tab) 650 mg PO Q4 PRN PRN Reason: Fever >100.4 F Aspirin (Ecotrin) 81 mg PO DAILY [facility] Last Admin: 07/10/17 08:28 Dose: 81 mg Carbamazepine (Tegretol-Xr) 300 mg PO Q12 [facility] Last Admin: 07/10/17 08:29 Dose: 300 mg Dexamethasone (Decadron) 1 mg PO Q12 [facility] Escitalopram Oxalate (Lexapro) 10 mg PO DAILY [facility] Last Admin: 07/10/17 08:29 Dose: 10 mg Hydrocortisone (Cortef) 20 mg PO BID [facility] Last Admin: 07/10/17 08:28 Dose: 20 mg Lactulose (Enulose) 20 gm PO DAILY PRN PRN Reason: Constipation Levothyroxine Sodium (Synthroid) 100 mcg PO DAILY@0630 [facility] Last Admin: 07/10/17 05:59 Dose: 100 mcg Meclizine HCl (Antivert) 25 mg PO Q8 PRN PRN Reason: Dizziness Pantoprazole Sodium (Protonix Ec Tab) 40 mg PO 0630 [facility] Last Admin: 07/10/17 05:59 Dose: 40 mg - Labs Labs: 07/09/17 05:30 - Constitutional Appears: No Acute Distress, Chronically Ill - Head Exam Additional comments: R Craniotomy. - Eye Exam Eye Exam: PERRL - ENT Exam ENT Exam: Normal Exam - Neck Exam Neck Exam: Normal Inspection - Respiratory Exam Respiratory Exam: Clear to Ausculation Bilateral - Cardiovascular Exam Cardiovascular Exam: REGULAR RHYTHM - GI/Abdominal Exam GI & Abdominal Exam: Soft, Normal Bowel Sounds - Extremities Exam Extremities Exam: Normal Inspection - Back Exam Back Exam: NORMAL INSPECTION - Neurological Exam Neurological Exam: Alert, Oriented x3 Additional comments: Speech clear, able to follows commands, no L arm drift, able to do L finger nose , hand rip equal R L hand , R L U/E 5:5 , R L L/E 5:5 , L hemianopsia - Psychiatric Exam Psychiatric exam: Anxious, Depressed - Skin Skin Exam: Warm Assessment and Plan (1) Gait instability Status: Acute (2) Head injury Status: Acute (3) Hx of fall Status: Chronic (4) Hx of seizure disorder Status: Chronic (5) Multiple thyroid nodules Status: Chronic (6) Hypothyroidism Status: Chronic (7) Anxiety Status: Acute (8) Depression Status: Acute - Assessment and Plan (Free Text) Plan: Continue Synthroid , Tegretol , Synthroid and rest of Tx, PT OT, discharge planning for Monday.
--- NOTE | 2017-07-10 22:35 | PN ---
ENDO FOLLOWUP NOTE LOCATION: Rehab unit. SUBJECTIVE: This is a 46-year-old male with recent overt hypothyroidism and hypoadrenalism, now being followed closely for metabolic management. He was given a tapering dose of IV steroids, which was changed to oral steroids and tapered down as noted. His glycemic levels were fluctuating, not improved and the latest chemistry showed a BUN of 11, sodium 136, potassium 3.7, chloride 99, CO2 of 26, glucose 88, and creatinine 0.7. His serum cortisol level done yesterday was still 1.2 mcg/dL, which is quite low, but also low albumin stores was noted. His thyroid study shows a T4 of 6.04 with a TSH of 1.97. So, at this time, we will continue the same oral anti-diabetic medications *------* with Synthroid given at 100 mcg once daily as ordered. We will also continue the hydrocortisone given as 20 mg p.o. b.i.d. after meals as ordered. He is on tapering dose of Decadron down to 1 mg p.o. every 12 hours as ordered. We will follow and advise accordingly. Gaby Pope MD
[2017-07-11] MEDS: Pantoprazole 40 mg EC Tab PO SCH (06:00)
[2017-07-11] MEDS: Levothyroxine 100 MCG TAB PO SCH (06:00)
[2017-07-11 08:08] VITALS: O2SAT 98
--- NOTE | 2017-07-11 11:44 | CP.PCM.PN ---
Subjective - Date & Time of Evaluation Date of Evaluation: 07/11/17 Time of Evaluation: 11:42 - Subjective Subjective: Mr. Huizar was seen and examined during therapy session. He is alert, oriented in all spheres. He denies any headache, weakness, lightheadedness, numbness. There is no untoward events overnight. Objective - Vital Signs/Intake and Output Vital Signs (last 24 hours): Temp Pulse Resp BP Pulse Ox 98.0 F 81 18 122/74 98 07/11/17 08:07 07/11/17 08:07 07/11/17 08:07 07/11/17 08:07 07/11/17 08:07 - Medications Medications: Current Medications Acetaminophen (Tylenol 325mg Tab) 650 mg PO Q4 PRN PRN Reason: Fever >100.4 F Aspirin (Ecotrin) 81 mg PO DAILY [facility] Last Admin: 07/11/17 08:40 Dose: 81 mg Carbamazepine (Tegretol-Xr) 300 mg PO Q12 [facility] Last Admin: 07/11/17 08:40 Dose: 300 mg Dexamethasone (Decadron) 1 mg PO Q12 [facility] Last Admin: 07/11/17 08:39 Dose: 1 mg Escitalopram Oxalate (Lexapro) 10 mg PO DAILY [facility] Last Admin: 07/11/17 08:40 Dose: 10 mg Hydrocortisone (Cortef) 20 mg PO BID [facility] Last Admin: 07/11/17 08:39 Dose: 20 mg Lactulose (Enulose) 20 gm PO DAILY PRN PRN Reason: Constipation Levothyroxine Sodium (Synthroid) 100 mcg PO DAILY@0630 [facility] Last Admin: 07/11/17 06:00 Dose: 100 mcg Meclizine HCl (Antivert) 25 mg PO Q8 PRN PRN Reason: Dizziness Pantoprazole Sodium (Protonix Ec Tab) 40 mg PO 0630 [facility] Last Admin: 07/11/17 06:00 Dose: 40 mg - Labs Labs: 07/09/17 05:30 - Constitutional Appears: Well - Head Exam Head Exam: ATRAUMATIC, NORMAL INSPECTION, NORMOCEPHALIC - Neurological Exam Neurological Exam: Alert, Awake, CN II-XII Intact, Normal Gait, Oriented x3 Neuro motor strength exam: Left Upper Extremity: 5, Right Upper Extremity: 5, Left Lower Extremity: 5, Right Lower Extremity: 5 Additional comments: Neurological unchanged from previous examination. Assessment and Plan (1) Gait instability Assessment & Plan: Case discussed with Dr. Jerez, Continue all current current medical, physical, occupational, and speech therapies. There is no new recommendation from neurology. Status: Acute
--- NOTE | 2017-07-11 12:54 | CP.PCM.PN ---
Subjective - Date & Time of Evaluation Date of Evaluation: 07/11/17 Time of Evaluation: 12:20 - Subjective Subjective: F/U Gait Instability. Pt with no A/D, no c/o, feels having normal strength LUE, LLE. Objective - Vital Signs/Intake and Output Vital Signs (last 24 hours): Temp Pulse Resp BP Pulse Ox 98.0 F 81 18 122/74 98 07/11/17 08:07 07/11/17 08:07 07/11/17 08:07 07/11/17 08:07 07/11/17 08:07 - Medications Medications: Current Medications Acetaminophen (Tylenol 325mg Tab) 650 mg PO Q4 PRN PRN Reason: Fever >100.4 F Aspirin (Ecotrin) 81 mg PO DAILY [facility] Last Admin: 07/11/17 08:40 Dose: 81 mg Carbamazepine (Tegretol-Xr) 300 mg PO Q12 [facility] Last Admin: 07/11/17 08:40 Dose: 300 mg Dexamethasone (Decadron) 1 mg PO Q12 [facility] Last Admin: 07/11/17 08:39 Dose: 1 mg Escitalopram Oxalate (Lexapro) 10 mg PO DAILY [facility] Last Admin: 07/11/17 08:40 Dose: 10 mg Hydrocortisone (Cortef) 20 mg PO BID [facility] Last Admin: 07/11/17 08:39 Dose: 20 mg Lactulose (Enulose) 20 gm PO DAILY PRN PRN Reason: Constipation Levothyroxine Sodium (Synthroid) 100 mcg PO DAILY@0630 [facility] Last Admin: 07/11/17 06:00 Dose: 100 mcg Meclizine HCl (Antivert) 25 mg PO Q8 PRN PRN Reason: Dizziness Pantoprazole Sodium (Protonix Ec Tab) 40 mg PO 0630 [facility] Last Admin: 07/11/17 06:00 Dose: 40 mg - Labs Labs: 07/09/17 05:30 - Constitutional Appears: No Acute Distress, Chronically Ill - Head Exam Additional comments: R Craniotomy - Eye Exam Eye Exam: PERRL - ENT Exam ENT Exam: Normal Exam - Neck Exam Neck Exam: Normal Inspection - Respiratory Exam Respiratory Exam: Clear to Ausculation Bilateral - Cardiovascular Exam Cardiovascular Exam: REGULAR RHYTHM - GI/Abdominal Exam GI & Abdominal Exam: Soft, Normal Bowel Sounds - Extremities Exam Extremities Exam: Normal Inspection - Back Exam Back Exam: NORMAL INSPECTION - Neurological Exam Neurological Exam: Alert, Oriented x3 Additional comments: Speech clear, able to follows commands, no L arm drift, able to do L finger nose , hand rip equal R L hands, R-L U/E 5:5, R-L L/E 5:5. L Hemianopsia. - Psychiatric Exam Psychiatric exam: Anxious - Skin Skin Exam: Warm Assessment and Plan (1) Gait instability Status: Acute (2) Head injury Status: Acute (3) Hx of fall Status: Chronic (4) Hx of seizure disorder Status: Chronic (5) Multiple thyroid nodules Status: Chronic (6) Hypothyroidism Status: Chronic (7) Anxiety Status: Acute (8) Depression Status: Acute (9) Hypopituitarism Status: Acute (10) Cortisol deficiency Status: Chronic - Assessment and Plan (Free Text) Plan: Discussed with Dr. Pope, Pt to continue Synthroid, Hydrocortisone 50 bid, f/u Endocrine as out Patient , continue Keppra. Pt improved and stable to be discharged, see information medication sheet, f/u with PMD . Neurology, Endocrinology in a week.
--- NOTE | 2017-07-11 15:51 | CP.PCM.PN ---
Subjective - Date & Time of Evaluation Date of Evaluation: 07/11/17 Time of Evaluation: 12:00 - Subjective Subjective: no acute complaints at present Objective - Vital Signs/Intake and Output Vital Signs (last 24 hours): Temp Pulse Resp BP Pulse Ox 98.0 F 81 18 122/74 98 07/11/17 08:07 07/11/17 08:07 07/11/17 08:07 07/11/17 08:07 07/11/17 08:07 - Medications Medications: Current Medications Acetaminophen (Tylenol 325mg Tab) 650 mg PO Q4 PRN PRN Reason: Fever >100.4 F Aspirin (Ecotrin) 81 mg PO DAILY [facility] Last Admin: 07/11/17 08:40 Dose: 81 mg Carbamazepine (Tegretol-Xr) 300 mg PO Q12 [facility] Last Admin: 07/11/17 08:40 Dose: 300 mg Dexamethasone (Decadron) 1 mg PO Q12 [facility] Last Admin: 07/11/17 08:39 Dose: 1 mg Escitalopram Oxalate (Lexapro) 10 mg PO DAILY [facility] Last Admin: 07/11/17 08:40 Dose: 10 mg Hydrocortisone (Cortef) 20 mg PO BID [facility] Last Admin: 07/11/17 08:39 Dose: 20 mg Lactulose (Enulose) 20 gm PO DAILY PRN PRN Reason: Constipation Levothyroxine Sodium (Synthroid) 100 mcg PO DAILY@0630 [facility] Last Admin: 07/11/17 06:00 Dose: 100 mcg Meclizine HCl (Antivert) 25 mg PO Q8 PRN PRN Reason: Dizziness Pantoprazole Sodium (Protonix Ec Tab) 40 mg PO 0630 [facility] Last Admin: 07/11/17 06:00 Dose: 40 mg - Labs Labs: 07/09/17 05:30 - Head Exam Head Exam: ATRAUMATIC, NORMAL INSPECTION, NORMOCEPHALIC - Eye Exam Eye Exam: EOMI, Normal appearance, PERRL Pupil Exam: NORMAL ACCOMODATION - ENT Exam ENT Exam: Mucous Membranes Moist, Normal Exam - Neck Exam Neck Exam: Normal Inspection - Respiratory Exam Respiratory Exam: NORMAL BREATHING PATTERN - Cardiovascular Exam Cardiovascular Exam: REGULAR RHYTHM - GI/Abdominal Exam GI & Abdominal Exam: Normal Bowel Sounds - Rectal Exam Rectal Exam: NORMAL INSPECTION - Exam External exam: NORMAL EXTERNAL EXAM - Extremities Exam Extremities Exam: Normal Capillary Refill, Normal Inspection - Back Exam Back Exam: NORMAL INSPECTION - Neurological Exam Neurological Exam: Alert, Awake Neuro motor strength exam: Left Upper Extremity: 3, Right Upper Extremity: 3, Left Lower Extremity: 3, Right Lower Extremity: 3 - Psychiatric Exam Psychiatric exam: Normal Affect, Normal Mood - Skin Skin Exam: Dry, Intact Assessment and Plan (1) Gait instability Assessment & Plan: plan for physical, occupational, rec therapy DC for tomorrow do discharge planning Status: Acute (2) Head injury Status: Acute (3) Hx of fall Status: Chronic (4) Hx of seizure disorder Status: Chronic (5) Multiple thyroid nodules Status: Chronic
--- NOTE | 2017-07-11 16:10 | CP.PCM.PN ---
Subjective - Date & Time of Evaluation Date of Evaluation: 07/10/17 Time of Evaluation: 18:00 - Subjective Subjective: no acute complaints at present Objective - Vital Signs/Intake and Output Vital Signs (last 24 hours): Temp Pulse Resp BP Pulse Ox 98.0 F 81 18 122/74 98 07/11/17 08:07 07/11/17 08:07 07/11/17 08:07 07/11/17 08:07 07/11/17 08:07 - Medications Medications: Current Medications Acetaminophen (Tylenol 325mg Tab) 650 mg PO Q4 PRN PRN Reason: Fever >100.4 F Aspirin (Ecotrin) 81 mg PO DAILY [facility] Last Admin: 07/11/17 08:40 Dose: 81 mg Carbamazepine (Tegretol-Xr) 300 mg PO Q12 [facility] Last Admin: 07/11/17 08:40 Dose: 300 mg Dexamethasone (Decadron) 1 mg PO Q12 [facility] Last Admin: 07/11/17 08:39 Dose: 1 mg Escitalopram Oxalate (Lexapro) 10 mg PO DAILY [facility] Last Admin: 07/11/17 08:40 Dose: 10 mg Hydrocortisone (Cortef) 20 mg PO BID [facility] Last Admin: 07/11/17 08:39 Dose: 20 mg Lactulose (Enulose) 20 gm PO DAILY PRN PRN Reason: Constipation Levothyroxine Sodium (Synthroid) 100 mcg PO DAILY@0630 [facility] Last Admin: 07/11/17 06:00 Dose: 100 mcg Meclizine HCl (Antivert) 25 mg PO Q8 PRN PRN Reason: Dizziness Pantoprazole Sodium (Protonix Ec Tab) 40 mg PO 0630 [facility] Last Admin: 07/11/17 06:00 Dose: 40 mg - Labs Labs: 07/09/17 05:30 - Head Exam Head Exam: ATRAUMATIC, NORMAL INSPECTION, NORMOCEPHALIC - Eye Exam Eye Exam: EOMI, Normal appearance, PERRL Pupil Exam: NORMAL ACCOMODATION - ENT Exam ENT Exam: Mucous Membranes Moist, Normal Exam - Neck Exam Neck Exam: Full ROM - Respiratory Exam Respiratory Exam: NORMAL BREATHING PATTERN - Cardiovascular Exam Cardiovascular Exam: REGULAR RHYTHM - GI/Abdominal Exam GI & Abdominal Exam: Soft, Normal Bowel Sounds - Rectal Exam Rectal Exam: NORMAL INSPECTION - Exam External exam: NORMAL EXTERNAL EXAM - Extremities Exam Extremities Exam: Normal Capillary Refill - Back Exam Back Exam: NORMAL INSPECTION - Neurological Exam Neurological Exam: Alert, Awake Neuro motor strength exam: Left Upper Extremity: 3, Right Upper Extremity: 3, Left Lower Extremity: 3, Right Lower Extremity: 3 - Psychiatric Exam Psychiatric exam: Normal Affect, Normal Mood - Skin Skin Exam: Dry, Intact Assessment and Plan (1) Gait instability Assessment & Plan: plan fo rphysical, occupational ,rec therapy monitor skin bowel, bladder and do Dc planning Status: Acute (2) Head injury Status: Acute (3) Hx of fall Status: Chronic (4) Hx of seizure disorder Status: Chronic (5) Multiple thyroid nodules Status: Chronic
--- NOTE | 2017-07-11 21:08 | PN ---
ENDO FOLLOWUP NOTE LOCATION: Room 626. SUBJECTIVE: This is a 46-year-old male with recent exacerbation for subclinical hypothyroidism and hypoadrenalism, currently on oral hormonal replacement therapy at this time and is now being followed closely for metabolic management. His latest chemistry showed a BUN of 11, sodium 136, potassium 3.7, chloride 99, CO2 of 26, glucose 88, and creatinine 0.7. His glucose is 88 mg/dL. The latest thyroid study showed a T4 of 6.04 with a TSH of 1.97. His latest serum cortisol level is 1.2 mcg/dL. ASSESSMENT AND PLAN: So, at this time, we will continue the levothyroxine modified to a dose of 100 mcg daily before breakfast as ordered. We will also continue the hydrocortisone given as 20 mg p.o. b.i.d. after meals as ordered. We will obtain serial chemistries and supplement accordingly as needed. We will highly recommend that the patient have serial thyroid studies and serial cortisol levels even done on the outpatient for closer endocrine evaluation and management. We will follow with you. Gaby Pope MD
[2017-07-11 21:24] VITALS: RESP 20
[2017-07-12] MEDS: Pantoprazole 40 mg EC Tab PO SCH (06:22)
[2017-07-12] MEDS: Levothyroxine 100 MCG TAB PO SCH (06:22)
[2017-07-12 08:34] VITALS: BP 129/72; PULSE 74; TEMP 97.9
--- NOTE | 2017-07-12 10:24 | CP.PCM.PN ---
<Cat Beal - Last Filed: 07/12/17 10:20> Subjective - Date & Time of Evaluation Date of Evaluation: 07/12/17 Time of Evaluation: 10:20 - Subjective Subjective: Mr. Huizar was seen and examined at the bedside. He is alert and denies any headache, dizziness, numbness, weakness or gait instability. He is able to ambulate with steady gait using a cane. He is not on any kind of distress. He is for discharge today. There was no untoward eevnts overnight. Objective - Vital Signs/Intake and Output Vital Signs (last 24 hours): Temp Pulse Resp BP Pulse Ox 97.9 F 74 20 129/72 98 07/12/17 08:32 07/12/17 08:32 07/12/17 08:32 07/12/17 08:32 07/12/17 08:32 - Medications Medications: Current Medications Acetaminophen (Tylenol 325mg Tab) 650 mg PO Q4 PRN PRN Reason: Fever >100.4 F Aspirin (Ecotrin) 81 mg PO DAILY [facility] Last Admin: 07/12/17 08:40 Dose: 81 mg Carbamazepine (Tegretol-Xr) 300 mg PO Q12 [facility] Last Admin: 07/12/17 08:41 Dose: 300 mg Dexamethasone (Decadron) 1 mg PO Q12 [facility] Last Admin: 07/12/17 08:40 Dose: 1 mg Escitalopram Oxalate (Lexapro) 10 mg PO DAILY [facility] Last Admin: 07/12/17 08:41 Dose: 10 mg Hydrocortisone (Cortef) 20 mg PO BID [facility] Last Admin: 07/12/17 08:40 Dose: 20 mg Lactulose (Enulose) 20 gm PO DAILY PRN PRN Reason: Constipation Levothyroxine Sodium (Synthroid) 100 mcg PO DAILY@0630 [facility] Last Admin: 07/12/17 06:22 Dose: 100 mcg Meclizine HCl (Antivert) 25 mg PO Q8 PRN PRN Reason: Dizziness Pantoprazole Sodium (Protonix Ec Tab) 40 mg PO 0630 [facility] Last Admin: 07/12/17 06:22 Dose: 40 mg - Labs Labs: 07/09/17 05:30 - Constitutional Appears: Well, No Acute Distress - Head Exam Head Exam: ATRAUMATIC, NORMAL INSPECTION, NORMOCEPHALIC - Neurological Exam Neurological Exam: Alert, Awake, CN II-XII Intact, Normal Gait, Oriented x3 Neuro motor strength exam: Left Upper Extremity: 5, Right Upper Extremity: 5, Left Lower Extremity: 5, Right Lower Extremity: 5 Additional comments: neurological unchanged from previous examination. Assessment and Plan (1) Gait instability Assessment & Plan: Case discussed with Dr. Jerez, continue all current medical, physical, and occupational therapies at home. Continue decadron 0.5 mg PO BID for 7 days then discontinue. Patient verbalizes understanding. Status: Acute <Sunday Ellison - Last Filed: 07/12/17 11:23> Objective - Vital Signs/Intake and Output Vital Signs (last 24 hours): Temp Pulse Resp BP Pulse Ox 97.9 F 74 20 129/72 98 07/12/17 08:32 07/12/17 08:32 07/12/17 08:32 07/12/17 08:32 07/12/17 08:32 - Labs Labs: 07/09/17 05:30 Assessment and Plan (1) Gait instability Status: Acute (2) Head injury Status: Acute (3) Hx of fall Status: Chronic (4) Hx of seizure disorder Status: Chronic (5) Multiple thyroid nodules Status: Chronic (6) Hypothyroidism Status: Chronic (7) Anxiety Status: Acute (8) Depression Status: Acute (9) Hypopituitarism Status: Acute (10) Cortisol deficiency Status: Chronic
--- NOTE | 2017-07-12 16:57 | PN ---
DATE: PHYSIATRY PROGRESS NOTE SUBJECTIVE: The patient is doing well, no acute complaints at present. PHYSICAL EXAMINATION VITAL SIGNS: Stable. NECK: Supple. CHEST: Symmetrical. HEART: Sounds S1, S2. ABDOMEN: Benign. EXTREMITIES: No clubbing, cyanosis, or edema. ASSESSMENT AND PLAN: The patient is status post right occipital brain mass, gait difficulty, deconditioning. The patient will be discharged today. Further services after discharge. The patient is to followup with the medical physician and the neurologist after discharge. Kashmir Carrasco MD
--- NOTE | 2017-07-12 17:29 | PN ---
DATE: SUBJECTIVE: This is a 46-year-old male with recent with recent hypothyroidism and hypoadrenalism, currently on oral hormonal replacement therapy and is now being followed closely for metabolic management. His latest chemistry showed a BUN of 11, sodium 136, potassium 3.7, chloride 99, CO2 of 26, glucose 88 and creatinine 0.7. His latest thyroid study showed a T4 of 6.04 with a TSH of 1.97. His serum cortisol level was 1.2 mcg/dL. So at this time, we will continue the same dual oral hormone replacement therapy as given with Synthroid given as 100 mcg daily and hydrocortisone given as 20 mg p.o. b.i.d. after meals as ordered. We will titrate incrementally as indicated to optimize metabolic control. We will follow with you. Gaby Pope MD
== END 2017-07-12 11:04 | disposition home health service (06) | DRG 92 ==
PROVIDERS: ADMIT Internal Medicine Pulmonary Disease; ATTEND Internal Medicine Pulmonary Disease
PROC: F07Z9FZ Gait Training/Functional Ambulation Treatment using Assistive, Adaptive, Supportive or Protective Equipment (ICD-10-PCS; principal; 2017-06-27)
PROC: F06Z6MZ Communicative/Cognitive Integration Skills Treatment using Augmentative / Alternative Communication Equipment (ICD-10-PCS; 2017-06-27)
PROC: 3E0234Z Introduction of Serum, Toxoid and Vaccine into Muscle, Percutaneous Approach (ICD-10-PCS; 2017-06-27)
PROC: F08Z4FZ Home Management Treatment using Assistive, Adaptive, Supportive or Protective Equipment (ICD-10-PCS; 2017-06-28)
PROC: F07M6FZ Therapeutic Exercise Treatment of Musculoskeletal System - Whole Body using Assistive, Adaptive, Supportive or Protective Equipment (ICD-10-PCS; 2017-06-28)
DX: R26.89 Other abnormalities of gait and mobility (principal); E23.0 Hypopituitarism; I69.854 Hemiplegia and hemiparesis following other cerebrovascular disease affecting left non-dominant side; E27.40 Unspecified adrenocortical insufficiency; H53.47 Heteronymous bilateral field defects; E02 Subclinical iodine-deficiency hypothyroidism; G40.909 Epilepsy, unspecified, not intractable, without status epilepticus; G93.9 Disorder of brain, unspecified; F41.9 Anxiety disorder, unspecified; F32.9 Major depressive disorder, single episode, unspecified; Z85.841 Personal history of malignant neoplasm of brain; Z87.820 Personal history of traumatic brain injury; Z23 Encounter for immunization; Z91.81 History of falling; Z92.3 Personal history of irradiation